=== PATIENT | male | born 1930 | race Caucasian/White ===

== ENCOUNTER → 2016-04-29 | Outpatient (CLI) | payer MEDICARE, OTHER ==
[2016-04-29 13:53] VITALS: BP 210/98; PULSE 85; RESP 16; TEMP 97.8
--- NOTE | 2016-04-30 22:11 | P.PN ---
Subjective This is follow-up visit for this patient with a history of severe and chronic low back pain secondary to lumbar degenerative disc disease, lumbar facet arthropathy, we have done interventional pain management injection, radiofrequency ablation of the medial branch lumbar area, and patient reported that his pain improved significantly than the radiofrequency, but 2 days ago he was shoveling the snow on his started feeling severe low back pain with radiation to the lower extremity, pain is constant with radiation to the lower extremity he had no change in the bowel movement or urination. No fever or night sweats and no motor or sensory deficit, intensity of the pain increases with any activity or changing position, Physical Examinations : 1-Constitutiona : Cooperative , not in acute distress . 2-HEENT : nech ; supple , no Lymphadenopathy , no Thyromegaly , normal thyroid size . eyes : no ptosis , no icterus, no photophobia . ENT : normal of hearing , normal oropharynx , no Thrush . 3- Respiratory : Chest clear to auscultations Bilaterally , no wheezing , no Rhonchi . 4- Cardiovascular : regular rate and rhythem , S1 , S2 , no S3 , no S4. 5- Gastrointestinal : abdomen soft no tenderness , bowel sounds positive all four quadrents , no organomegally . 6- Genitourinary : Defferred . 7- neurologic : Cranial nerve II to XII intact , no focal neurological deffecit . 8-psychatric : alert , oriented X 3 , appropriate affect , intact judgment and insight . 9-Lymphatic : no Lymphadenopathy . 10- musculoskeltal : exams of the Lumber spine = motor strength lower extremities ,thigh and legs .5/5 deep tendon reflexes : normal Knee Jerk , normal ankle Jerk . lumber facet Loading Test negative strait leg raising test positive at 30 degree , RT ,LT , Fabere test positive RT and positive LT . 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 myelopathy , Status post radiofrequency ablation of the medial branch lumbar area done in February 2016 and early March 2016 , the pain started after patient was shoveling the snow , patient could benefit from Ultram 50 mg half a tablet every 6 hours , and Mobic 7.5 mg daily And we will see patient in the clinic in 3-4 weeks , if he continued to have pain then will consider doing lumbar epidural steroid injection - diagnoses, prognosis, and treatment options including but not limited to physical therapy, surgical interventions, interventional therapies and medication management including narcotics and adjuvant medication were discussed with the patient and all questions answered to the patient's satisfaction. Objective - Vital Signs Vital signs: Vital Signs Temp 97.8 F 04/29/16 13:44 Pulse 85 04/29/16 13:44 Resp 16 04/29/16 13:44 BP 210/98 04/29/16 13:44 Pulse Ox
== END | disposition home or self-care (01) ==
LOC: PNWHC3 12:32
PROVIDERS: ATTEND Specialist
DX: M51.36 Other intervertebral disc degeneration, lumbar region (principal); M47.816 Spondylosis without myelopathy or radiculopathy, lumbar region; M46.96 Unspecified inflammatory spondylopathy, lumbar region
CPT/HCPCS: 99211

== ENCOUNTER 2016-05-21 22:15 | Inpatient (IN) | payer MEDICARE, OTHER ==
[2016-05-21] MEDS ORDERED: NITROGLYCERIN SL TABS 0.4 MG TAB SUBLINGUAL STA (22:33)
[2016-05-21] MEDS ORDERED: SODIUM CHLORIDE 0.9% 1,000 ML IV STA (22:33)
--- NOTE | 2016-05-21 22:39 | ED ---
Chest Pain HPI - General Chief Complaint: Chest Pain Stated Complaint: Chest Pain Time Seen by Provider: 05/21/16 22:25 Source: patient, RN notes reviewed Mode of arrival: EMS Limitations: no limitations - History of Present Illness Initial Comments: This 85-year-old male who states he had the onset of retrosternal chest discomfort after eating dinner tonight. He states pain was sharp and then heavy 7-8/10 in severity he took 2 aspirins he states is down to about a 45 right now. He denies any shortness of breath cough fevers chills sweats or other symptoms. MD Complaint: chest pain - Related Data Home Medications Medication Instructions Recorded Confirmed Ergocalciferol [Vitamin D2 50,000 unit PO Q15D 01/27/14 05/21/16 (DRISDOL)] Losartan Potassium 100 mg PO DAILY 01/27/14 05/21/16 Multivitamins, Thera [Multivitamin] 1 tab PO DAILY 01/27/14 05/21/16 [place]-3 Fatty Acids/Fish Oil [Fish 1 cap PO BID 01/27/14 05/21/16 Oil 1,000 mg Softgel] Garlic 1 tab PO BID 11/28/15 05/21/16 sitaGLIPtin [Januvia] 25 mg PO DAILY 11/28/15 05/21/16 Vitamin B Complex 1 cap PO DAILY 12/12/15 05/21/16 Atorvastatin [Lipitor] 40 mg PO HS 05/21/16 05/21/16 Verapamil HCl [Verapamil ER] 240 mg PO DAILY 05/21/16 05/21/16 metFORMIN HCL 1,000 mg PO W/SUPPER 05/21/16 05/21/16 Allergies Allergy/AdvReac Type Severity Reaction Status Date / Time iron Allergy Rash/Hives Verified 05/21/16 23:11 Review of Systems ROS Statement: Those systems with pertinent positive or pertinent negative responses have been documented in the HPI. ROS Other: All systems not noted in ROS Statement are negative. EKG Findings - EKG Results: EKG: interpreted by RASHEED, sinus rhythm (Sinus rhythm first-degree AV block occasional PVC rate was 95. Interval to 16 QRS duration 86 QT/QTC 358/449 st-t wave changes) Past Medical History Past Medical History: Cancer, Diabetes Mellitus, Hyperlipidemia, Hypertension, Osteoarthritis (OA) Additional Past Medical History / Comment(s): prostate ca, osteoarthritis in lower back. pain lower back and lt knee History of Any Multi-Drug Resistant Organisms: None Reported Past Surgical History: Bowel Resection, Hernia Repair, Joint Replacement Additional Past Surgical History / Comment(s): bilateral hip replacements, zoltan. cataract surgery. Past Anesthesia/Blood Transfusion Reactions: No Reported Reaction Past Psychological History: No Psychological Hx Reported Smoking Status: Former smoker Past Alcohol Use History: Daily Additional Past Alcohol Use History / Comment(s): quit smoking 40 years ago, smoked a pipe. Past Drug Use History: None Reported - Past Family History Mother Family Medical History: Congestive Heart Failure (CHF) Father Family Medical History: Myocardial Infarction ([place]) General Exam - General Exam Comments Initial Comments: This is a well-developed well-nourished awake alert oriented 3 male Limitations: no limitations General appearance: alert, in no apparent distress Head exam: Present: atraumatic, normocephalic, normal inspection Eye exam: Present: normal appearance, PERRL, EOMI. Absent: scleral icterus, conjunctival injection, periorbital swelling ENT exam: Present: normal exam, mucous membranes moist Neck exam: Present: normal inspection. Absent: tenderness, meningismus, lymphadenopathy Respiratory exam: Present: normal lung sounds bilaterally. Absent: respiratory distress, wheezes, rales, rhonchi, stridor Cardiovascular Exam: Present: regular rate, normal rhythm, normal heart sounds. Absent: systolic murmur, diastolic murmur, rubs, gallop, clicks GI/Abdominal exam: Present: soft, tenderness (Mild epigastric tenderness to palpation no guarding rebound), normal bowel sounds. Absent: distended, guarding, rebound, rigid Extremities exam: Present: normal inspection, full ROM, normal capillary refill. Absent: tenderness, pedal edema, joint swelling, calf tenderness Back exam: Present: normal inspection Neurological exam: Present: alert, oriented X3, CN II-XII intact Psychiatric exam: Present: normal affect, normal mood Skin exam: Present: warm, dry, intact, normal color. Absent: rash Course Vital Signs 05/21/16 05/21/16 05/21/16 22:18 22:38 22:50 Temperature 96.8 F L Pulse Rate 97 86 96 Pulse Rate [ 94 Surgical Dental Assistant ] Respiratory 16 16 16 Rate Blood Pressure 172/79 190/75 130/63 O2 Sat by Pulse 96 98 95 Oximetry - Reevaluation(s) Reevaluation #1: 05/21/16 23:46 The patient did get some relief after administration of nitroglycerin Chest Pain MDM - MDM I did have a long discussion with patient and his regarding findings patient be admitted Critical Care Time Critical Care Time: Yes Critical Care Time: 31 minutes of critical care time which includes initial history physical lab and x-ray orders reevaluation of the patient to responsive therapy evaluation of labs and x-rays discussion with patient family discussion with the admitting physician and admission orders and documentation of the above. Disposition Clinical Impression: Unstable angina pectoris Disposition: ADMITTED IP TO THIS HOSP Condition: Stable
[2016-05-21 22:47] LABS: Basophils % (A) 0 %; CH 30.4; CHCM 33.5; Eosinophils # (A) 0.2 k/uL (0-0.7); Eosinophils % (A) 2 %; HCT 38.9 % (39.0-53.0); HDW 3.09; HGB 12.8 gm/dL (13.0-17.5); Luc # (Auto) 0.28; Luc % (Auto) 4; Lymphocytes # (A) 1.8 k/uL (1.0-4.8); Lymphocytes % (A) 24 %; MCH 30.1 pg (25.0-35.0); MCV 91.3 fL (80.0-100.0); Mean Platelet Volume 7.4; Monocytes # (A) 0.6 k/uL (0-1.0); Monocytes % (A) 7 %; Neutrophils # (A) 4.9 k/uL (1.3-7.7); Neutrophils % (A) 63 %; RBC 4.26 m/uL (4.30-5.90); RDW 14.4 % (11.5-15.5); WBC 7.8 k/uL (3.8-10.6); WBC (Perox) 7.76
[2016-05-21] MEDS ORDERED: HEPARIN SODIUM,PORCINE 5,000 UNIT/ML 1 ML VIAL IV ONE (22:50)
[2016-05-21] MEDS ORDERED: NITROGLYCERIN OINT 1 INCH/GM PACKET TOPICAL STA (22:50)
[2016-05-21 22:56] LABS: ALT 28 U/L (21-72); AST 21 U/L (17-59); Alkaline Phosphatase 70 U/L (38-126); Amylase 49 U/L (30-110); Anion Gap 17 mmol/L; Blood Urea Nitrogen 20 mg/dL (9-20); Calcium 9.4 mg/dL (8.4-10.2); Carbon Dioxide 17 mmol/L (22-30); Chloride 107 mmol/L (98-107); Glucose 94 mg/dL (74-99); Magnesium 1.8 mg/dL (1.6-2.3); Non-African American GFR(MDRD) >60 (>60 ml/min/1.73 sqM); Potassium 3.8 mmol/L (3.5-5.1); Sodium 141 mmol/L (137-145); Total Bilirubin 0.4 mg/dL (0.2-1.3); Total Protein 6.6 g/dL (6.3-8.2)
[2016-05-21] MEDS ORDERED: HEPARIN SODIUM,PORCINE/D5W PMX 25,000 UNIT in DEXTROSE/WATER 1 500ML.BAG IV SCH (23:00)
[2016-05-21 23:01] LABS: Partial Thromboplastin Time 24.7 sec (22.0-30.0); Prothrombin Time 10.3 sec (9.0-12.0)
[2016-05-21 23:05] LABS: Creatine Kinase 66 U/L (55-170)
[2016-05-21 23:18] LABS: Creatine Kinase MB 1.9 ng/mL (0.0-2.4); Troponin I <0.012 ng/mL (0.000-0.034)
[2016-05-21] MEDS ORDERED: ERGOCALCIFEROL 50,000 UNIT CAP PO SCH (23:45)
[2016-05-21] MEDS: SODIUM CHLORIDE 0.9% 1,000 ML IV SCH (23:59)
--- NOTE | 2016-05-22 00:15 | XR ---
EXAMINATION TYPE: XR chest 2V DATE OF EXAM: 05/21/2016 11:02 PM COMPARISON: 09/10/2010 HISTORY: Chest pain today history of cancer and hypertension. TECHNIQUE: Frontal and lateral views of the chest are obtained. FINDINGS: Mild chronic interstitial lung changes are suggested especially in the right lung base of chronic aryan ure with possible mild pulmonary fibrotic scarring. There is no focal air space opacity, pleural effusion, or pneumothorax seen. There is mild cardiomega ly and atherosclerotic calcification in the aortic arch. The superior mediastinum is slightly prominent probably related to great vessels. Moderate degenerative changes are present in the bilateral shoulder joints. IMPRESSION: 1. Chronic lung changes. 2. No definite focal pneumonia. 3. No significant interval change.
[2016-05-22] MEDS ORDERED: ONDANSETRON 4 MG/2 ML VIAL IVP PRN (00:52)
[2016-05-22] MEDS ORDERED: MORPHINE SULFATE 4 MG/ML SYRINGE IVP PRN (00:52)
[2016-05-22 01:22] VITALS: BMI 28.3
[2016-05-22] MEDS: NITROGLYCERIN OINT 1 INCH/GM PACKET TOPICAL SCH ×3 (01:26→05:24)
[2016-05-22 06:00] LABS: Cholesterol 115 mg/dL (<200); Creatine Kinase 60 U/L (55-170); HDL Cholesterol 47 mg/dL (40-60); Triglycerides 103 mg/dL (<150)
[2016-05-22 06:13] LABS: Creatine Kinase MB 1.7 ng/mL (0.0-2.4); Troponin I <0.012 ng/mL (0.000-0.034)
[2016-05-22] MEDS ORDERED: HEPARIN SODIUM,PORCINE 5,000 UNIT/ML 1 ML VIAL IV PRN (06:39)
[2016-05-22 07:09] LABS: Glucose,Whole Blood 142 mg/dL (75-99)
[2016-05-22] MEDS: INSULIN LISPRO (humaLOG) 300 UNIT/3 ML VIAL SQ SCH ×4 (07:48→22:12)
[2016-05-22 08:10] LABS: Hemoglobin A1C 6.3 % (4.2-6.1)
[2016-05-22] MEDS ORDERED: ASPIRIN 325 MG TAB PO SCH (09:00)
[2016-05-22] MEDS ORDERED: NON-FORMULARY DRUG (Garlic [Garlic] 1 TAB) PO SCH (09:00)
[2016-05-22] MEDS ORDERED: VERAPAMIL SR 240 MG TABLET.ER PO SCH (09:00)
[2016-05-22] MEDS ORDERED: NON-FORMULARY DRUG (Omega-3 Fatty Acids/Fish Oil [Fish Oil 1,000 Mg Softgel] 1 CAP) PO SCH (09:00)
[2016-05-22] MEDS ORDERED: LOSARTAN 50 MG TAB PO SCH ×2 (09:00→21:00)
[2016-05-22] MEDS ORDERED: AMINOPHYLLINE 500 MG/20 ML VIAL IV PRN (09:34)
[2016-05-22] MEDS ORDERED: REGADENOSON 0.4 MG/5 ML SYRINGE IV ONE (09:34)
--- NOTE | 2016-05-22 10:03 | CONS ---
DATE OF CONSULTATION: Mr. Lauren is an 85-year-old male patient who presented with recurrent chest discomfort to the emergency room. He felt a little fuzzy in the head, but had no other associated symptoms. No radiation. His 12-lead ECG showed sinus rhythm with a mildly prolonged OH interval with occasional PVCs. No definite ST segment abnormalities. Cardiac enzymes x3 have been normal. 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 He has Parkinson disease. REVIEW OF SYSTEMS: No fever, chills or rigors. No cough or expectoration. No nausea, vomiting or diarrhea. No hematuria or dysuria. No strokes or seizures. No skin lesions. No musculoskeletal complaints. Allergies to IRON. SOCIAL HISTORY: He is a former smoker. He quit smoking 40 years back. He smoked a pipe. On examination, he is afebrile. Heart rate is in the 80s and 90s. His blood pressure was elevated initially at 172/79 mmHg and 190/ 75 mmHg. Currently, his blood pressure is 164/85 mmHg. His medications were reviewed and he is on losartan 100 mg a day. He is on verapamil 240 mg daily and he is on atorvastatin 40 mg q.h.s. IMPRESSION: 1. Uncontrolled hypertension. 2. Atypical chest discomfort with normal cardiac enzymes. 3. History of diabetes, adult onset. He is on metformin. 4. Dyslipidemia. He is on atorvastatin. SUGGEST: Continue aspirin, blood pressure control. His kidney function is normal. I would stop his verapamil and switch to amlodipine 10 mg p.o. daily. I will hold off of on stress test until his blood pressure is controlled.
[2016-05-22] MEDS: B COMPLEX-VIT C-VIT E-ZINC 1 EACH TAB PO SCH (10:12)
[2016-05-22] MEDS: LINAGLIPTIN 5 MG TABLET PO SCH (10:12)
[2016-05-22] MEDS: MULTIVITAMINS, THERA 1 EACH TAB PO SCH (10:12)
--- NOTE | 2016-05-22 10:31 | P.HPIM ---
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 Stated that he to 2 aspirins seemed to settle down. Patient states over the last several weeks has felt "a little out of balance noted to have a shuffling type gait with slight tremors noted to the hands. Additionally patient states over the last several months poor oral intake weight loss unintentional with poor appetite secondary to sensation of nausea no active emesis "I just don't feel like eating" patient states that he has been compliant with taking his medication as directed. Patient states in the this been no burning on urination frequency urgency or incontinence and no change in her bowel habit no blood noted in stool. In the emergency room the blood pressure was elevated 190/75 with a heart rate in the 80s to 90s subsequently the patient has been admitted to the services of the attending Cardiology consultation was requested. His blood pressure meds were adjusted Norvasc 10 mg daily verapamil stopped Cozaar 50 at bedtime and to continue the 100 mg daily. Cardiology recommended no Lexiscan at this time cardiac enzymes were negative 3 sets and orthostatic blood pressures every shift evaluate response Nursing to check orthostatic blood pressures. The blood pressure was 168/80 lying with a heart rate in the 80s standing the blood pressure dropped to 119 over 80s with a heart rate of 93 patient denied any dizziness lightheadedness Review of Systems Essentially unremarkable except as mentioned in the present illness Past Medical History Past Medical History: Cancer, Diabetes Mellitus, Hyperlipidemia, Hypertension, Osteoarthritis (OA) Additional Past Medical History / Comment(s): prostate ca with radiation, osteoarthritis in lower back. pain lower back and lt knee History of Any Multi-Drug Resistant Organisms: None Reported Past Surgical History: Bowel Resection, Hernia Repair, Joint Replacement Additional Past Surgical History / Comment(s): bilateral hip replacements, zoltan. cataract surgery, nerve procedure on lower back at [facility] Past Anesthesia/Blood Transfusion Reactions: No Reported Reaction Past Psychological History: No Psychological Hx Reported Additional Psychological History / Comment(s): pt states he has had some problems with depression since his brother in February of 2016. He states he has had 6 friends also over the last year. he states he feels this is situational. denies suicidal thoughts or feelings of wanting to be himself. he has found productive ways to cope with these feelings and relys on his debra Smoking Status: Former smoker Past Alcohol Use History: Occasional Additional Past Alcohol Use History / Comment(s): only smoked a pipe. Past Drug Use History: None Reported Additional Drug Use History / Comment(s): pt states he has a glass of whiskey on occasion in the evenings - Past Family History Mother History Unknown: Yes Family Medical History: Congestive Heart Failure (CHF) Father History Unknown: Yes Family Medical History: Myocardial Infarction ([place]) Medications and Allergies Home Medications Medication Instructions Recorded Confirmed Type Ergocalciferol [Vitamin D2 50,000 unit PO Q15D 01/27/14 05/21/16 History (DRISDOL)] Losartan Potassium 100 mg PO DAILY 01/27/14 05/21/16 History Multivitamins, Thera [Multivitamin] 1 tab PO DAILY 01/27/14 05/21/16 History [place]-3 Fatty Acids/Fish Oil [Fish 1 cap PO BID 01/27/14 05/21/16 History Oil 1,000 mg Softgel] Garlic 1 tab PO BID 11/28/15 05/21/16 History sitaGLIPtin [Januvia] 25 mg PO DAILY 11/28/15 05/21/16 History Vitamin B Complex 1 cap PO DAILY 12/12/15 05/21/16 History Atorvastatin [Lipitor] 40 mg PO HS 05/21/16 05/21/16 History Verapamil HCl [Verapamil ER] 240 mg PO DAILY 05/21/16 05/21/16 History metFORMIN HCL 1,000 mg PO W/SUPPER 05/21/16 05/21/16 History Allergies Allergy/AdvReac Type Severity Reaction Status Date / Time iron Allergy Rash/Hives Verified 05/21/16 23:11 Physical Exam Vitals: Vital Signs Temp Pulse Pulse Pulse Resp BP BP 05/22/16 09:21 94 18 164/85 05/22/16 08:00 98.7 F 100 18 181/99 05/22/16 04:00 98.1 F 95 16 179/90 05/22/16 03:24 93 16 05/22/16 01:27 106 H 16 05/22/16 01:21 97.7 F 101 H 16 162/87 05/22/16 00:01 97.7 F 89 16 181/86 Pulse Ox 05/22/16 09:21 94 L 05/22/16 08:00 93 L 05/22/16 04:00 96 05/22/16 03:24 05/22/16 01:27 05/22/16 01:21 97 05/22/16 00:01 97 Intake and Output 05/21/16 05/22/16 05/22/16 22:59 06:59 14:59 Intake Total 140.731 Balance 140.731 Intake: Intake, IV Titration 140.731 Amount Heparin Sodium,Porcine/ 140.731 D5w Pmx 25,000 unit In Dextrose/Water 1 500ml. bag @ 12 UNITS/KG/HR 17. 41 mls/hr IV .Q24H [facility] Rx #:[id number] Other: Voiding Method Toilet Toilet Urinal Urinal Diaper Diaper # Voids 4 Weight 72.575 kg GENERAL APPEARANCE: 88-year-old male patient is alert, oriented, in no acute distress. Is hard of hearing VITAL SIGNS: Reviewed HEENT: Head is normocephalic and atraumatic. Pupils are equal and reactive. The nares are patent. Oropharynx is clear without lesions. NECK: Supple without lymphadenopathy. Traches midline. HEART: S1, S2. Regular rate and rhythm. Monitor sinus episodes of unifocal PVCs PACs LUNGS: No crackles or wheezes are heard. On room air sats greater than 95% ABDOMEN: Soft, nontender, nondistended with good bowel sounds. No peritoneal signs. No palpable organomegaly or masses. EXTREMITIES: Normal skin color and turgor. No cyanosis, rash, ulceration, clubbing or edema. Radial pedal pulses are 2/4 bilaterally. Fine tremors noted to the hand NEUROLOGICAL: No focal deficits. Strength and sensation are grossly intact. Results CBC & Chem 7: 05/21/16 22:30 05/21/16 22:30 Labs: Abnormal Lab Results - Last 24 Hours (Table) 05/22/16 05/22/16 Range/Units 05:26 07:08 POC Glucose (mg/dL) 142 H (75-99) mg/dL Hemoglobin A1c 6.3 H (4.2-6.1) % Thrombosis Risk Factor Assmnt - Choose All That Apply Each Risk Factor Represents 3 Points: Age 75 years or older Thrombosis Risk Factor Assessment Total Risk Factor Score: 3 Thrombosis Risk Factor Assessment Level: Moderate Risk Assessment and Plan Plan: Impression Present on admission chest pain atypical with no evidence of acute coronary syndrome Shuffling gait with hand tremors suspect due to Parkinson's Positive orthostatic blood pressure lying 168/80 heart rate in the 90s standing 119/80 with a heart rate 93 Report of unintentional weight loss past several months History of hypertension Type 2 diabetes non-insulin hemoglobin A1c 6.3 Plan Check orthostatic blood pressures every shift Check echocardiogram Continue with recommendations by cardiology Consult neurology question Parkinson's disease Dietitian to see for poor oral intake poor caloric intake possible nutritional supplements needed IV fluid as ordered DVT and GI prophylaxis The above dictated assessment and findings were discussed with dr velasco . Impression and the plan of care have been dictated as directed. Erica Haley nurse practitioner acting as a scribe for dr velasco.
[2016-05-22 11:32] LABS: Creatine Kinase 61 U/L (55-170)
[2016-05-22 11:44] LABS: Creatine Kinase MB 1.7 ng/mL (0.0-2.4); Troponin I <0.012 ng/mL (0.000-0.034)
[2016-05-22 12:12] LABS: Glucose,Whole Blood 129 mg/dL (75-99)
[2016-05-22] MEDS: SODIUM CHLORIDE 0.9% 1,000 ML IV SCH (12:19)
[2016-05-22] MEDS: ASPIRIN 81 MG CHEW PO SCH (12:19)
--- NOTE | 2016-05-22 17:09 | P.CNNES ---
History of Present Illness Consult date: 05/22/16 History of Present Illness: The patient is an 85-year-old right-handed white male with history of chest pain for the past 2 or 3 days. He states the pain was in the left chest area and intermittent and last evening it became more severe and intense. He took 2 aspirin and his brought him to the emergency room. X Neurology is requested to see the patient regarding Parkinson's like symptoms. He states that over the past 2 months he's been shuffling his gait and has had tremors in both hands. He also noticed some stiffening of the limbs. His handwriting is been okay and he denied any drooling. His swallowing has been okay. 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 Review of Systems Constitutional: Denies chills, Denies fever Eyes: denies blurred vision, denies pain Cardiovascular: Denies chest pain, Denies shortness of breath Respiratory: Denies cough Musculoskeletal: Denies myalgias Integumentary: Denies pruritus, Denies rash Neurological: Denies numbness, Denies weakness Psychiatric: Denies anxiety, Denies depression Endocrine: Denies fatigue, Denies weight change Past Medical History Past Medical History: Cancer, Diabetes Mellitus, Hyperlipidemia, Hypertension, Osteoarthritis (OA) Additional Past Medical History / Comment(s): prostate ca with radiation, osteoarthritis in lower back. pain lower back and lt knee History of Any Multi-Drug Resistant Organisms: None Reported Past Surgical History: Bowel Resection, Hernia Repair, Joint Replacement Additional Past Surgical History / Comment(s): bilateral hip replacements, zoltan. cataract surgery, nerve procedure on lower back at [facility] Past Anesthesia/Blood Transfusion Reactions: No Reported Reaction Past Psychological History: No Psychological Hx Reported Additional Psychological History / Comment(s): pt states he has had some problems with depression since his brother in February of 2016. He states he has had 6 friends also over the last year. he states he feels this is situational. denies suicidal thoughts or feelings of wanting to be himself. he has found productive ways to cope with these feelings and relys on his debra Smoking Status: Former smoker Past Alcohol Use History: Occasional Additional Past Alcohol Use History / Comment(s): only smoked a pipe. Past Drug Use History: None Reported Additional Drug Use History / Comment(s): pt states he has a glass of whiskey on occasion in the evenings - Past Family History Mother History Unknown: Yes Family Medical History: Congestive Heart Failure (CHF) Father History Unknown: Yes Family Medical History: Myocardial Infarction ([place]) Medications and Allergies Home Medications Medication Instructions Recorded Confirmed Type Ergocalciferol [Vitamin D2 50,000 unit PO Q15D 01/27/14 05/21/16 History (DRISDOL)] Losartan Potassium 100 mg PO DAILY 01/27/14 05/21/16 History Multivitamins, Thera [Multivitamin] 1 tab PO DAILY 01/27/14 05/21/16 History [place]-3 Fatty Acids/Fish Oil [Fish 1 cap PO BID 01/27/14 05/21/16 History Oil 1,000 mg Softgel] Garlic 1 tab PO BID 11/28/15 05/21/16 History sitaGLIPtin [Januvia] 25 mg PO DAILY 11/28/15 05/21/16 History Vitamin B Complex 1 cap PO DAILY 12/12/15 05/21/16 History Atorvastatin [Lipitor] 40 mg PO HS 05/21/16 05/21/16 History Verapamil HCl [Verapamil ER] 240 mg PO DAILY 05/21/16 05/21/16 History metFORMIN HCL 1,000 mg PO W/SUPPER 05/21/16 05/21/16 History Allergies Allergy/AdvReac Type Severity Reaction Status Date / Time iron Allergy Rash/Hives Verified 05/21/16 23:11 Physical Examination - Vital Signs Vital Signs: Vital Signs Temp Pulse Resp BP Pulse Ox 05/22/16 15:32 97.7 F 83 18 183/85 95 05/22/16 11:44 98.3 F 89 18 157/87 94 L Intake and Output 05/22/16 05/22/16 05/22/16 06:59 14:59 22:59 Intake Total 200 Balance 200 Intake: Oral 200 Other: Weight 72.575 kg Patient Weight 05/23/16 06:59 Weight 72.575 kg - Constitutional General appearance: average body habitus - EENT EENT: PERRL, hearing intact, vision intact - Respiratory Respiratory: lungs clear - Cardiovascular Cardiovascular: regular rate, normal S1, normal S2 - Integumentary Integumentary: normal - Neurologic Mental status he was awake alert and oriented 3 his speech was fluent there was no aphasia or dysarthria Cranial nerve examination: EOMI, VFF, face symmetric, tongue midline Sensorimotor examination: intact Detailed motor examination: grossly full strength in all extremities ( mild cogwheel rigidity) Reflex and gait examination: other (Shuffling gait) Results - Laboratory Findings CBC and BMP: 05/21/16 22:30 05/21/16 22:30 Abnormal Lab Findings: Abnormal Labs 05/22/16 12:10 POC Glucose (mg/dL) 129 H Assessment and Plan (1) Unstable angina pectoris Status: Acute Code(s): I20.0 - UNSTABLE ANGINA (2) Parkinsons disease Status: Acute Code(s): G20 - PARKINSON'S DISEASE Plan: The patient is an 85-year-old man who's been having difficulty with in the past few months with tremors at rest and shuffling gait. On neurologic examination he does have a mild masked face and minimal cogwheel rigidity as well as mild shuffling gait. He does have early features of Parkinson's disease. His admitted to the hospital with unstable angina. Recommend when stable patient can be started on Sinemet 25/100 twice a day as a trial to see if this improves his shuffling gait and resting tremor.
[2016-05-22 17:15] LABS: Glucose,Whole Blood 116 mg/dL (75-99)
[2016-05-22] MEDS ORDERED: metFORMIN 500 MG TAB PO SCH (17:30)
--- NOTE | 2016-05-22 19:08 | CT ---
EXAMINATION TYPE: CT brain wo con DATE OF EXAM: 05/22/2016 6:36 PM COMPARISON: NONE HISTORY: weakness CT DLP: 1121 mGycm Automated exposure control for dose reduction was used. FINDINGS: There is some cerebral cortical atrophy. There is no mass effect nor midline shift. There is no sign of intracranial hemorrhage. There is slight prominence of the ventricles. No rim is intact. IMPRESSION: Mild atrophy and mild normal pressure type hydrocephalus. No acute intracranial abnormality.
[2016-05-22] MEDS ORDERED: ATORVASTATIN 40 MG TAB PO SCH (21:00)
[2016-05-22] MEDS ORDERED: cloNIDine 0.1 MG/24HR PATCH 1 PATCH PATCH TRANSDERM SCH (21:00)
[2016-05-22 21:51] LABS: Glucose,Whole Blood 126 mg/dL (75-99)
[2016-05-23 06:53] LABS: Glucose,Whole Blood 135 mg/dL (75-99)
[2016-05-23] MEDS: SODIUM CHLORIDE 0.9% 1,000 ML IV SCH ×2 (07:57→08:03)
[2016-05-23] MEDS: LINAGLIPTIN 5 MG TABLET PO SCH (08:02)
[2016-05-23] MEDS: MULTIVITAMINS, THERA 1 EACH TAB PO SCH (08:02)
[2016-05-23] MEDS: INSULIN LISPRO (humaLOG) 300 UNIT/3 ML VIAL SQ SCH (08:02)
[2016-05-23] MEDS: ASPIRIN 81 MG CHEW PO SCH (08:02)
[2016-05-23] MEDS: B COMPLEX-VIT C-VIT E-ZINC 1 EACH TAB PO SCH (08:02)
[2016-05-23 08:23] VITALS: BP 193/91; PULSE 81; RESP 18; TEMP 98.6
[2016-05-23 08:29] LABS: ALT 38 U/L (21-72); AST 16 U/L (17-59); Alkaline Phosphatase 71 U/L (38-126); Anion Gap 14 mmol/L; Blood Urea Nitrogen 14 mg/dL (9-20); Calcium 9.3 mg/dL (8.4-10.2); Carbon Dioxide 23 mmol/L (22-30); Chloride 107 mmol/L (98-107); Glucose 135 mg/dL (74-99); Non-African American GFR(MDRD) >60 (>60 ml/min/1.73 sqM); Potassium 4.2 mmol/L (3.5-5.1); Sodium 144 mmol/L (137-145); Total Bilirubin 0.7 mg/dL (0.2-1.3); Total Protein 5.9 g/dL (6.3-8.2)
[2016-05-23] MEDS ORDERED: amLODIPine 10 MG TAB PO SCH (09:00)
--- NOTE | 2016-05-23 09:30 | ECHOF ---
Referral Reason:LV function MEASUREMENTS -------- HEIGHT: 160.0 cm WEIGHT: 72.6 kg BP: IVSd: 1.4 cm (0.6 - 1.1) LVIDd: 4.4 cm (3.9 - 5.3) LVPWd: 1.3 cm (0.6 - 1.1) IVSs: 2.0 cm LVIDs: 3.2 cm LVPWs: 1.0 cm LA Diam: 2.8 cm (2.7 - 3.8) Ao Diam: 3.4 cm (2.0 - 3.7) AV Cusp: 1.6 cm (1.5 - 2.6) LA Diam: 3.9 cm (2.7 - 3.8) MV EXCURSION: 13.275 mm (> 18.000) MV EF SLOPE: 62 mm/s (70 - 150) EPSS: 0.9 cm MV E Garret: 0.38 m/s MV DecT: 295 ms MV A Garret: 0.88 m/s MV E/A Ratio: 0.44 RAP: 5.00 mmHg RVSP: 12.04 mmHg FINDINGS -------- Sinus rhythm. This was a technically adequate study. There is mild concentric left ventricular hypertrophy. Overall left ventricular systolic function is low-normal with, an EF between 50 - 55 %. The right ventricle is normal in size. The left atrial size is normal. The right atrial size is normal. There is mild aortic valve sclerosis. There is no evidence of aortic regurgitation. Mild mitral annular calcification present. Mild mitral regurgitation is present. Mild tricuspid regurgitation present. There is no evidence of pulmonary hypertension. The right ventricular systolic pressure, as measured by Doppler, is 12.04mmHg. There is no pulmonic regurgitation present. The aortic root size is normal. Echo free space may represent effusion or a pericardial fat pad. CONCLUSIONS -------- 1. There is mild concentric left ventricular hypertrophy. 2. Overall left ventricular systolic function is low-normal with, an EF between 50 - 55 %. 3. There is mild aortic valve sclerosis. 4. Mild mitral annular calcification present. 5. Mild mitral regurgitation is present. 6. Mild tricuspid regurgitation present. 7. There is no evidence of pulmonary hypertension. 8. The right ventricular systolic pressure, as measured by Doppler, is 12.04mmHg. 9. Echo free space may represent effusion or a pericardial fat pad. PULL OVER: Leslie Sawyer RDCS
[2016-05-23] MEDS ORDERED: CARBIDOPA-LEVODOPA 25-100 MG 1 EACH TAB PO SCH (10:15)
--- NOTE | 2016-05-23 10:35 | P.DS ---
Providers Date of admission: 05/22/16 11:33 Expected date of discharge: 05/23/16 Attending physician: Neptali Austin Consults: Dr. 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 Stated that he to 2 aspirins seemed to settle down. Patient states over the last several weeks has felt "a little out of balance noted to have a shuffling type gait with slight tremors noted to the hands. Additionally patient states over the last several months poor oral intake weight loss unintentional with poor appetite secondary to sensation of nausea no active emesis "I just don't feel like eating" patient states that he has been compliant with taking his medication as directed. Patient states in the this been no burning on urination frequency urgency or incontinence and no change in her bowel habit no blood noted in stool. In the emergency room the blood pressure was elevated 190/75 with a heart rate in the 80s to 90s subsequently the patient has been admitted to the services of the attending Cardiology consultation was requested. . Cardiology recommended no Lexiscan at this time cardiac enzymes were negative 3 sets and orthostatic blood pressures every shift evaluate response orthostatic blood pressure readings were positive on admission. Cardiology recommended stopping home doses of verapamil and and losartan and start clonidine patch 0.1 milligram now and change every 7t day. Cardiology recommended that they would follow the patient in the outpatient setting and antihypertensive meds would be addressed after monitoring blood pressure in the response on the current regimen patient did have an echocardiogram done this admission showed left ventricular systolic function low normal EF between 50 and 55% no pulmonary hypertension no valvular heart disease etiology indicated they wanted to avoid extremes in patient's blood pressure avoid hypotensive episodes at the time of discharge the systolic blood pressure was 179 .On admission The blood pressure was 168/80 lying with a heart rate in the 80s standing the blood pressure dropped to 119 over 80s with a heart rate of 93 patient denied any dizziness lightheadedness A neurology consultation was requested patient was seen by Dr. Langford. Patient was evaluated for the unsteady shuffling gait with fine tremors in a mild masked face. Neurology recommended that the patient could be started on Sinemet [id number] twice a day as a trial and see the symptoms such as a shuffling gait improved and the resting tremors resolved The day of discharge patient was felt to be clinically stable and appropriate to proceed with a discharge to home Impression discharge diagnosis Present on admission mild shuffling gait mild mass face with resting tremors of hands likely due to Parkinson's diseaseImpression Present on admission chest pain atypical with no evidence of acute coronary syndrome Shuffling gait with hand tremors suspect due to Parkinson's Positive orthostatic blood pressure lying 168/80 heart rate in the 90s standing 119/80 with a heart rate 93 Report of unintentional weight loss past several months History of hypertension Type 2 diabetes non-insulin hemoglobin A1c 6.3 Present on admission hypertension urgency Episode of positive orthostasis Echocardiogram May 22 preserved LV function EF 50-55% Chronic Physical debility with gait dysfunction suspect due to Parkinson's disease The above dictated assessment and findings were discussed with dr austin . Impression and the plan of care have been dictated as directed. Erica Haley nurse practitioner acting as a scribe for dr austin Patient Condition at Discharge: Stable Plan - Discharge Summary New Discharge Prescriptions: Carbidopa-Levodopa 25-100 mg [Sinemet 25-100 mg] 1 each PO BID #60 tab cloNIDine 0.1 MG/24HR PATCH [Catapres-TTS] 1 patch TRANSDERM Q7D #4 patch Discharge Medication List Ergocalciferol [Vitamin D2 (DRISDOL)] 50,000 unit PO Q15D 01/27/14 [History] Multivitamins, Thera [Multivitamin] 1 tab PO DAILY 01/27/14 [History] Darling-3 Fatty Acids/Fish Oil [Fish Oil 1,000 mg Softgel] 1 cap PO BID 01/27/14 [ History] Garlic 1 tab PO BID 11/28/15 [History] sitaGLIPtin [Januvia] 25 mg PO DAILY 11/28/15 [History] Vitamin B Complex 1 cap PO DAILY 12/12/15 [History] Atorvastatin [Lipitor] 40 mg PO HS 05/21/16 [History] metFORMIN HCL 1,000 mg PO W/SUPPER 05/21/16 [History] Aspirin 81 mg PO DAILY chew 05/23/16 [Rx] Carbidopa-Levodopa 25-100 mg [Sinemet 25-100 mg] 1 each PO BID #60 tab 05/23/16 [Rx] cloNIDine 0.1 MG/24HR PATCH [Catapres-TTS] 1 patch TRANSDERM Q7D #4 patch [Rx] Follow up Appointment(s)/Referral(s): Neptali Austin MD [Primary Care Provider] - 1-2 days Olamide Langford MD [STAFF PHYSICIAN] - 3 Weeks Ramu Holliday MD [STAFF PHYSICIAN] - 2 Weeks Activity/Diet/Wound Care/Special Instructions: Patient is to change the placement of the Catapres patch every seventh day changing Discharge Disposition: HOME SELF-CARE
--- NOTE | 2016-05-23 11:11 | P.PN ---
Progress Note - Text Patient is ambulating in the hallways today. He is not dizzy or lightheaded he does not appear to be orthostatic but his blood pressure is still elevated. Yesterday I started him on a clonidine patch and discontinued losartan and verapamil or amlodipine He has Parkinson's disease and most likely has dysautonomia/orthostatic hypotension syndrome On examination he is pain-free he's ambulating in the hallways no shortness of breath Blood pressure 172/72 mmHg, normal respirations, pulse rate 76 beats a minute, afebrile Heart sounds are normal Normal S1 normal S2 Breath sounds are normal no rhonchi no crackles reduced breath sounds bilaterally no No lower extremity edema Abdomen soft nontender Impression Hypertension Likely orthostatic hypotension syndrome Likely Parkinson's disease Past history of smoking Atypical chest discomfort Mildly prolonged IL interval with occasional PVCs Adult-onset diabetes on metformin Dyslipidemia on atorvastatin
== END 2016-05-23 12:15 | disposition home or self-care (01) | DRG 305 ==
LOC: EC 22:15 → 3OBS 23:48 → OBSVTOIN 05-22 11:33
PROVIDERS: ADMIT Family Medicine; ATTEND Family Medicine
DX: I10 Essential (primary) hypertension (principal); G20 Parkinson's disease; E11.9 Type 2 diabetes mellitus without complications; R07.89 Other chest pain; E78.5 Hyperlipidemia, unspecified; I95.1 Orthostatic hypotension; F32.9 Major depressive disorder, single episode, unspecified; R63.4 Abnormal weight loss; M47.9 Spondylosis, unspecified; I49.3 Ventricular premature depolarization; Z79.84 Long term (current) use of oral hypoglycemic drugs; Z79.899 Other long term (current) drug therapy; Z85.46 Personal history of malignant neoplasm of prostate; Z85.21 Personal history of malignant neoplasm of larynx; Z87.891 Personal history of nicotine dependence; Z96.643 Presence of artificial hip joint, bilateral; Z88.8 Allergy status to other drugs, medicaments and biological substances; Z82.49 Family history of ischemic heart disease and other diseases of the circulatory system
CPT/HCPCS: 36415; 70450; 71020; 80053; 80061; 82043; 82150; 82550; 82553; 83036; 83690; 83735; 83880; 84484; 85025; 85379; 85610; 85730; 93005; 93306; 96365; 96366; 96376; 99291

== ENCOUNTER → 2016-05-21 | Outpatient (CLI) | payer MEDICARE, OTHER ==
[2016-05-21 08:51] LABS: ALT 34 U/L (21-72); AST 19 U/L (17-59); Alkaline Phosphatase 80 U/L (38-126); Anion Gap 12 mmol/L; Blood Urea Nitrogen 19 mg/dL (9-20); Calcium 9.5 mg/dL (8.4-10.2); Carbon Dioxide 26 mmol/L (22-30); Chloride 106 mmol/L (98-107); Cholesterol 119 mg/dL (<200); Glucose 139 mg/dL (74-99); HDL Cholesterol 51 mg/dL (40-60); Non-African American GFR(MDRD) >60 (>60 ml/min/1.73 sqM); Potassium 4.6 mmol/L (3.5-5.1); Sodium 144 mmol/L (137-145); Total Bilirubin 0.6 mg/dL (0.2-1.3); Total Protein 6.7 g/dL (6.3-8.2); Triglycerides 93 mg/dL (<150)
== END | disposition home or self-care (01) ==
LOC: LABWHC1 07:46
PROVIDERS: ATTEND Internal Medicine Endocrinology, Diabetes & Metabolism
DX: E11.65 Type 2 diabetes mellitus with hyperglycemia (principal)
CPT/HCPCS: 36415; 80053; 80061; 82043

== ENCOUNTER → 2016-05-27 | Outpatient (CLI) | payer MEDICARE, OTHER ==
[2016-05-27 12:37] VITALS: BP 141/63; PULSE 88; RESP 16; TEMP 97.6
--- NOTE | 2016-05-27 12:53 | P.PN ---
Progress Note - Text Patient returns for followup for chronic back pain with radiation to LLE that worsened acutely when patient was shoveling snow in March. Patient underwent bilateral RFA in February and March which provided some relief for several months' interval but he continues to have nagging pain in back and LLE. Patient continues on tramadol and Mobic medications prescribed by our clinic at last visit, but ran out of tramadol which he states was not effective for him. Patient denies adverse drug effects from medications. Today, pt denies new-onset weakness, bowel/bladder incontinence, or any other signs or symptoms of cauda equina syndrome. There are no signs of acute intoxication, and no indications of medication diversion or overuse. In addition to above, 13-point review of systems is also negative for chest pain , shortness of breath, changes in vision, changes in hearing, new onset weakness , abdominal pain, diarrhea, extreme fatigue, malaise, fever, skin changes, homicidal or suicidal ideation, or bowel or bladder incontinence. 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 lumbar radiculopathy 3. chronic pain syndrome Plan: 1. Explanation: Opioid and psychological risk scores were reviewed. Diagnoses , prognoses, and multiple treatment options including but not limited to physical therapy, interventional therapies, adjuvant medical therapies, narcotic medication therapies, and surgery were discussed with the patient and all questions were answered to the patient's satisfaction. 2. Opioid agreement: Patient has previously signed narcotic agreement, and was orally counseled to not overuse, abuse, divert, or cell medications, and to take them as prescribed by only 1 healthcare provider. The patient was also counseled to store opioid medications in a safe and preferably locked location. Patient was also counseled against driving or operating heavy equipment while using narcotic medications and also to not use alcohol or any illicit or recreational drugs. The patient verbalized understanding that lack of compliance with any of the above and likely result in failure to renew narcotic prescriptions, possible discharge from the clinic, and possible legal ramifications thereafter if indicated. 3. Counseling: The patient was counseled extensively on SMOKING CESSATION, BODY MASS INDEX, EXERCISE. Specifically, the patient was instructed regarding the importance of smoking cessation, obesity, and exercise in the context of both chronic pain and overall health. 4. Procedures: LESI series 5. Consultations: None 6. Investigations: None 7. Medications: none prescribed 8. Disposition: f/u for procedure as scheduled PQRS measures: 1-Patient's medications are documented in the chart. 2-Tobacco use is negative 3-Patient has had a pneumococcal vaccine. 4-Advanced care planning discussed, patient unable to give. 5-Opioid contract signed with the patient. 6-Pain positive, follow-up visit or procedure scheduled 7-Patient's blood pressure measured and documented, and patient will follow up with the primary care due to hypertension. 8-Patient's weight was measured, and body mass index ABOVE the normal limits, and counseling was done. Patient instructed to follow up with PCP. 9-Patient WAS NOT identified as an unhealthy alcohol user.
== END | disposition home or self-care (01) ==
LOC: PNWHC3 12:04
PROVIDERS: ATTEND Anesthesiology
DX: G89.4 Chronic pain syndrome (principal); M47.816 Spondylosis without myelopathy or radiculopathy, lumbar region; M54.16 Radiculopathy, lumbar region; Z79.899 Other long term (current) drug therapy
CPT/HCPCS: 99211

== ENCOUNTER 2016-06-27 10:19 | Day surgery (SDC) | payer MEDICARE, OTHER ==
[~2016-06-27 10:19] MED LIST: LACTATED RINGERS 1,000 ML IV SCH
[2016-06-27 10:56] VITALS: TEMP 96.6
[2016-06-27 11:06] LABS: Glucose,Whole Blood 128 mg/dL (75-99)
[2016-06-27] MEDS ORDERED: fentaNYL (PF) 50 MCG/ML 2 ML AMP ONE (11:06)
[2016-06-27] MEDS ORDERED: MIDAZOLAM 2 MG/2 ML VIAL ONE (11:06)
[2016-06-27] MEDS ORDERED: LIDOCAINE 1% 20 ML VIAL (10MG/ML) FOR IV START INTRADERMA ONE (11:06)
[2016-06-27] MEDS ORDERED: IOHEXOL 180 MG/ML 1 ML ML ONE (11:06)
[2016-06-27] MEDS ORDERED: TRIAMCINOLONE ACETONIDE 40 MG/ML 1 ML VIAL ONE (11:06)
--- NOTE | 2016-06-27 11:23 | P.PCN ---
Date of Procedure: 06/27/16 Surgeon: Ang Osorio Pathology: none sent Condition: stable Disposition: PACU Description of Procedure: PREOPERATIVE DIAGNOSIS: 1-Lumbar radiculitis. POSTOPERATIVE DIAGNOSIS: 1-Lumbar radiculitis. PROCEDURE 1. Lumbar epidural steroid injection under fluoroscopic guidance at the L5-S1 level. 2. Lumbar epidurogram. ANESTHESIA: Local with 1% lidocaine; IV sedation with Versed/fentanyl. EBL: Minimal PROCEDURE INDICATION: The patient with low back pain and radiculitis symptoms unresponsive to conservative treatment. Fluoroscopy was used to optimize visualization of the needle placement and to maximize safety. No use of blood thinners. PROCEDURE DESCRIPTION / TECHNIQUE: The patient was seen and identified in the preoperative area. Risks, benefits, complications, and alternatives were discussed with the patient, including but not limited to bleeding, infection, nerve damage, allergic reactions to medications, and incomplete pain relief. The patient agreed to proceed with the procedure and signed the consent after all questions were answered. IV was started, and vital signs were stable. Patient was taken to the OR and time out was completed to confirm patient position, procedure, laterality of pain, and allergies. The patient was placed in the prone position on procedure table and a pillow was placed under the abdomen to reduce lumbar lordosis. The lumbosacral area was prepped and draped in the usual sterile fashion. Critical pause was taken. Vital signs were closely monitored during the procedure. Conscious sedation was used during the procedure to decrease patients anxiety. Using anterior-posterior fluoroscopy with a significant caudal tilt, the L5-S1 interlaminar space was identified and the skin over this site was marked and then infiltrated with 1% lidocaine subcutaneously. Subsequently, a 20-gauge 3.5- inch Tuohy epidural needle was inserted and advanced toward the epidural space using the Loss of resistance technique and guided by AP and lateral fluoroscopy. The correct needle position in the epidural space was verified with the injection of 2 mL of the water soluble contrast dye Omnipaque 300 contrast and observing an excellent epidurogram with the epidural spread of the dye, after negative aspiration for blood and CSF and in the absence of paresthesias. Again after negative aspiration, a 8 ml mixture containing 80 mg of Kenalog and 4 ml of preservative free Normal Saline, and 2 ml of preservative free lidocaine 1% solution was injected and a washout of epidurogram was seen. Needle was withdrawn intact, skin was cleansed, and bandages were applied. COMPLICATIONS: None COMMENTS: DISPOSITION / PLANS: The patient was placed in a supine position and transferred to the recovery area in a stable condition for observation. There was no evidence of lower extremity motor or sensory deficit after the procedure. Patient was discharged from the recovery room after meeting discharge criteria. Home discharge instructions were given to the patient by the staff. The patient was reexamined prior to discharge. The patient will schedule a repeat procedure in 4-6 weeks.
[2016-06-27] MEDS ORDERED: IV FLUID CONTINUATION 1,000 ML IV ONE (11:34)
[2016-06-27 11:38] VITALS: RESP 16
[2016-06-27 11:55] VITALS: BP 139/71; PULSE 75
--- NOTE | 2016-06-27 13:09 | FL ---
EXAMINATION TYPE: FL guided pain mgmt statistic DATE OF EXAM: 06/27/2016 12:08 PM CLINICAL HISTORY: Low back pain. TECHNIQUE: Fluoroscopy. COMPARISON: None. FINDINGS: Fluoroscopic guidance was provided during pain relief procedure performed by Dr. Osorio . A total of 8 seconds of fluoroscopic time was utilized during the procedure and two spot images are a cquired. Images acquired shows needle localization at level of lumbosacral junction epidural space. IMPRESSION: As Above.
== END 2016-06-27 12:07 | disposition home or self-care (01) ==
LOC: ORPAIN 10:19
PROVIDERS: ATTEND Anesthesiology
DX: G89.29 Other chronic pain (principal); M54.16 Radiculopathy, lumbar region; I10 Essential (primary) hypertension; E11.9 Type 2 diabetes mellitus without complications; Z88.8 Allergy status to other drugs, medicaments and biological substances; Z79.84 Long term (current) use of oral hypoglycemic drugs; Z79.899 Other long term (current) drug therapy
CPT/HCPCS: 62323; J2250; J3301; Q9965; J3010

== ENCOUNTER 2016-08-01 10:08 | Day surgery (SDC) | payer MEDICARE, OTHER ==
[2016-07-30 15:58] VITALS: BMI 27.4
[2016-08-01 11:23] VITALS: TEMP 97.5
[2016-08-01] MEDS ORDERED: LIDOCAINE 1% 20 ML VIAL (10MG/ML) FOR IV START INTRADERMA ONE (11:35)
[2016-08-01 11:44] LABS: Glucose,Whole Blood 113 mg/dL (75-99)
[2016-08-01] MEDS ORDERED: TRIAMCINOLONE ACETONIDE 40 MG/ML 1 ML VIAL ONE (12:03)
[2016-08-01] MEDS ORDERED: ENALAPRILAT 1.25 MG/ML 1 ML VIAL ONE (12:03)
[2016-08-01] MEDS ORDERED: fentaNYL (PF) 50 MCG/ML 2 ML AMP ONE (12:03)
[2016-08-01] MEDS ORDERED: IOHEXOL 180 MG/ML 1 ML ML ONE (12:03)
[2016-08-01] MEDS ORDERED: MIDAZOLAM 2 MG/2 ML VIAL ONE (12:03)
[2016-08-01] MEDS ORDERED: IV FLUID CONTINUATION 650 ML IV ONE (12:36)
--- NOTE | 2016-08-01 12:36 | P.PCN ---
Date of Procedure: 08/01/16 Procedure(s) Performed: PREOPERATIVE DIAGNOSIS: 1- Lumbar Degenerative Disc Diseases POSTOPERATIVE DIAGNOSIS: 1-Lumber Degenerative Disc Diseases PROCEDURE 1. Lumbar epidural steroid injection under fluoroscopic guidance at the L5-S1 level. 2. Lumbar epidurogram. ANESTHESIA: Local with 1% lidocaine 3 ml and IV sedation with Versed 1 mg , and fentanyle 50 Mcg EBL: Minimal PROCEDURE INDICATION: The patient with low back pain and radiculitis symptoms unresponsive to conservative treatment. Fluoroscopy was used to optimize visualization of the needle placement and to maximize safety. PROCEDURE DESCRIPTION / TECHNIQUE: The patient was seen and identified in the preoperative area. Risks, benefits , complications including but not limited to infections ,bleeding ,allergic reaction to the medications ,nerve damage and not complete pain releife , and alternatives were discussed with the patient. The patient agreed to proceed with the procedure and signed the consent. IV was started, and vital signs were stable. Patient was taken to the OR and time out was completed. The patient was placed in the prone position on procedure table and a pillow was placed under the abdomen to reduce lumbar lordosis. The lumbosacral area was prepped and draped in the usual sterile fashion.ere closely monitored during the procedure. Conscious sedation was used during the procedure to decrease patients anxiety. Vital signs was monitered during the entire procedure. Using anterior-posterior fluoroscopy, the L5-S1 interlaminar space was identified and the skin over this site was marked and then infiltrated with 1% lidocaine subcutaneously. Subsequently, a 20-gauge Tuohy epidural needle was inserted and advanced toward the epidural space using the ``Loss of resistance technique and guided by AP and lateral fluoroscopy. The correct needle position in the epidural space was verified with the injection of 2 mL of the water soluble contrast dye Omnipaque 180 contrast and observing an excellent epidurogram with the epidural spread of the dye, after negative aspiration for blood and CSF and in the absence of paresthesias. Again after negative aspiration, a 6 ml mixture containing 40 mg of Kenalog and 2 ml of preservative free Normal Saline, and 2 ml of preservative free lidocaine 1% solution was injected and a washout of epidurogram was seen. Needle was withdrawn intact, skin was cleansed, and bandages were applied. COMPLICATIONS: None DISPOSITION / PLANS: The patient was placed in a supine position and transferred to the recovery area in a stable condition for observation. There was no evidence of lower extremity motor or sensory deficit after the procedure. Patient was discharged from the recovery room after meeting discharge criteria. Home discharge instructions were given to the patient by the staff. The patient was reexamined prior to discharge. The patient will schedule a follow up in the clinic in 2-4 weeks.
--- NOTE | 2016-08-01 12:38 | FL ---
EXAMINATION TYPE: FL guided pain mgmt statistic DATE OF EXAM: 08/01/2016 12:23 PM HISTORY: Pain LESI, 1sec fl time
[2016-08-01 12:54] VITALS: BP 132/66; PULSE 86; RESP 16
== END 2016-08-01 13:05 | disposition home or self-care (01) ==
LOC: ORPAIN 10:08
PROVIDERS: ATTEND Specialist
DX: M51.16 Intervertebral disc disorders with radiculopathy, lumbar region (principal); I10 Essential (primary) hypertension; E11.9 Type 2 diabetes mellitus without complications; Z88.8 Allergy status to other drugs, medicaments and biological substances
CPT/HCPCS: 62323; 99152; J2250; J3301; Q9965; J3010

== ENCOUNTER 2016-09-03 07:29 | Day surgery (SDC) | payer MEDICARE, OTHER ==
[2016-09-02 11:44] VITALS: BMI 27.4
[2016-09-03 08:16] VITALS: RESP 20; TEMP 97.6
[2016-09-03 08:22] LABS: Glucose,Whole Blood 114 mg/dL (75-99)
[2016-09-03] MEDS: LACTATED RINGERS 1,000 ML IV SCH ×2 (08:23→08:33)
[2016-09-03] MEDS ORDERED: LIDOCAINE 1% 20 ML VIAL (10MG/ML) FOR IV START INTRADERMA ONE (08:23)
[2016-09-03] MEDS ORDERED: DEXAMETHASONE SOD PHOSPHATE 10 MG/ML 1 ML VIAL ONE (08:35)
[2016-09-03] MEDS ORDERED: MIDAZOLAM 2 MG/2 ML VIAL ONE (08:35)
[2016-09-03] MEDS ORDERED: fentaNYL (PF) 50 MCG/ML 2 ML AMP ONE (08:35)
[2016-09-03] MEDS ORDERED: IOHEXOL 180 MG/ML 1 ML ML ONE (08:35)
--- NOTE | 2016-09-03 08:49 | P.PCN ---
Date of Procedure: 09/03/16 Preoperative Diagnosis: Postoperative Diagnosis: Procedure(s) Performed: Implants: Surgeon: Ang Osorio Pathology: none sent Condition: stable Disposition: PACU Indications for Procedure: Operative Findings: Description of Procedure: PREOPERATIVE DIAGNOSIS: 1-Lumbar radiculitis. POSTOPERATIVE DIAGNOSIS: 1-Lumbar radiculitis. PROCEDURE 1. Lumbar epidural steroid injection under fluoroscopic guidance at the L5-S1 level. 2. Lumbar epidurogram. ANESTHESIA: Local with 1% lidocaine; IV sedation with Versed/fentanyl. EBL: Minimal PROCEDURE INDICATION: The patient with low back pain and radiculitis symptoms unresponsive to conservative treatment. Fluoroscopy was used to optimize visualization of the needle placement and to maximize safety. No use of blood thinners. Procedure #3 today. PROCEDURE DESCRIPTION / TECHNIQUE: The patient was seen and identified in the preoperative area. Risks, benefits, complications, and alternatives were discussed with the patient, including but not limited to bleeding, infection, nerve damage, allergic reactions to medications, and incomplete pain relief. The patient agreed to proceed with the procedure and signed the consent after all questions were answered. IV was started, and vital signs were stable. Patient was taken to the OR and time out was completed to confirm patient position, procedure, laterality of pain, and allergies. The patient was placed in the prone position on procedure table and a pillow was placed under the abdomen to reduce lumbar lordosis. The lumbosacral area was prepped and draped in the usual sterile fashion. Critical pause was taken. Vital signs were closely monitored during the procedure. Conscious sedation was used during the procedure to decrease patients anxiety. Using anterior-posterior fluoroscopy with a significant caudal tilt, the L5-S1 interlaminar space was identified and the skin over this site was marked and then infiltrated with 1% lidocaine subcutaneously. Subsequently, a 20-gauge 3.5- inch Tuohy epidural needle was inserted and advanced toward the epidural space using the Loss of resistance technique and guided by AP and lateral fluoroscopy. The correct needle position in the epidural space was verified with the injection of 2 mL of the water soluble contrast dye Omnipaque 300 contrast and observing an excellent epidurogram with the epidural spread of the dye, after negative aspiration for blood and CSF and in the absence of paresthesias. Again after negative aspiration, a 8 ml mixture containing 20 mg of Decadron and 4 ml of preservative free Normal Saline, and 2 ml of preservative free lidocaine 1% solution was injected and a washout of epidurogram was seen. Needle was withdrawn intact, skin was cleansed, and bandages were applied. COMPLICATIONS: None COMMENTS: DISPOSITION / PLANS: The patient was placed in a supine position and transferred to the recovery area in a stable condition for observation. There was no evidence of lower extremity motor or sensory deficit after the procedure. Patient was discharged from the recovery room after meeting discharge criteria. Home discharge instructions were given to the patient by the staff. The patient was reexamined prior to discharge and there were no issues. The patient will schedule a follow-up in clinic in approximately 6 weeks.
[2016-09-03] MEDS ORDERED: IV FLUID CONTINUATION 1,000 ML IV ONE (09:06)
[2016-09-03 09:20] VITALS: BP 149/81; PULSE 65
--- NOTE | 2016-09-03 09:33 | FL ---
Fluoroscopy INDICATION: Lumbar epidural FINDINGS: Fluoroscopy time: 6 seconds. Images obtained: 2. IMPRESSIONS: 1. Documentation of fluoroscopy.
== END 2016-09-03 09:46 | disposition home or self-care (01) ==
LOC: ORPAIN 07:29
PROVIDERS: ATTEND Anesthesiology
DX: M54.16 Radiculopathy, lumbar region (principal); Z79.82 Long term (current) use of aspirin
CPT/HCPCS: 62323; J2250; J1100; Q9965; J3010

== ENCOUNTER → 2016-11-04 | Outpatient (CLI) | payer MEDICARE, OTHER ==
[2016-11-04 12:32] VITALS: BP 164/80; PULSE 103; RESP 20; TEMP 94.8
--- NOTE | 2016-11-04 13:07 | P.PN ---
Progress Note - Text Patient returns for followup for chronic back pain with radiation to LLE that worsened acutely when patient was shoveling snow in March. Patient underwent LESI x 3 with one week's relief apiece from each injection and is having severe pain in left hip today; he has seen an orthopedic surgeon and was told that nothing can be done for his left hip other than total hip arthroplasty. Patient denies adverse drug effects from medications. Today, pt denies new-onset weakness, bowel/bladder incontinence, or any other signs or symptoms of cauda equina syndrome. There are no signs of acute intoxication, and no indications of medication diversion or overuse. In addition to above, 13-point review of systems is also negative for chest pain , shortness of breath, changes in vision, changes in hearing, new onset weakness , abdominal pain, diarrhea, extreme fatigue, malaise, fever, skin changes, homicidal or suicidal ideation, or bowel or bladder incontinence. Vital Signs: Reviewed in EMR Gen: WDWN, AAOx3, NAD HEENT: NCAT, EOMI, hearing grossly normal Pulm: resp unlabored Abd: soft, NT, ND Neck: supple, trachea midline ROM in flexion lumbar spine: reduced ROM in extension lumbar spine: reduced Lumbar paravertebral tenderness: + Facet loading: + bilateral SI joint tenderness: neg bilateral Jamil's test: + bilateral Straight leg raise: neg Lower extremity: pain with internal and external rotation left hip Neuro: CN II-XII grossly intact, muscle strength lower extremities PRESERVED Imaging: Reviewed in EMR Assessment: 1. lumbar spondylosis without myelopathy 2. lumbar radiculopathy 3. chronic pain syndrome Plan: 1. Explanation: Opioid and psychological risk scores were reviewed. Diagnoses , prognoses, and multiple treatment options including but not limited to physical therapy, interventional therapies, adjuvant medical therapies, narcotic medication therapies, and surgery were discussed with the patient and all questions were answered to the patient's satisfaction. 2. Opioid agreement: Patient has previously signed narcotic agreement, and was orally counseled to not overuse, abuse, divert, or cell medications, and to take them as prescribed by only 1 healthcare provider. The patient was also counseled to store opioid medications in a safe and preferably locked location. Patient was also counseled against driving or operating heavy equipment while using narcotic medications and also to not use alcohol or any illicit or recreational drugs. The patient verbalized understanding that lack of compliance with any of the above and likely result in failure to renew narcotic prescriptions, possible discharge from the clinic, and possible legal ramifications thereafter if indicated. 3. Counseling: The patient was counseled extensively onBODY MASS INDEX, EXERCISE. Specifically, the patient was instructed regarding the importance of weight control and exercise in the context of both chronic pain and overall health. 4. Procedures: left intra-articular hip injection 5. Consultations: None 6. Investigations: None 7. Medications: none prescribed 8. Disposition: f/u for procedure as scheduled PQRS measures: 1-Patient's medications are documented in the chart. 2-Tobacco use is negative 3-Patient has had a pneumococcal vaccine. 4-Advanced care planning discussed, patient unable to give. 5-Opioid contract signed with the patient. 6-Pain positive, follow-up visit or procedure scheduled 7-Patient's blood pressure measured and documented, and patient will follow up with the primary care due to hypertension. 8-Patient's weight was measured, and body mass index ABOVE the normal limits, and counseling was done. Patient instructed to follow up with PCP. 9-Patient WAS NOT identified as an unhealthy alcohol user.
== END | disposition home or self-care (01) ==
LOC: PNWHC3 12:18
PROVIDERS: ATTEND Anesthesiology
DX: M47.26 Other spondylosis with radiculopathy, lumbar region (principal); G89.4 Chronic pain syndrome
CPT/HCPCS: 99211

== ENCOUNTER 2016-12-02 10:00 | Day surgery (SDC) | payer MEDICARE, OTHER ==
[2016-11-27 14:09] VITALS: BMI 27.4
[2016-12-02 08:29] VITALS: RESP 16; TEMP 97.7
--- NOTE | 2016-12-02 09:08 | P.PCN ---
Date of Procedure: 12/02/16 Preoperative Diagnosis: Left sacroiliitis Postoperative Diagnosis: Same as above Procedure(s) Performed: Left sacroiliac joint steroid injection under fluoroscopic guidance Implants: Anesthesia: other (Moderate IV conscious sedation with fentanyl and Versed) Surgeon: Antonio Kirk Pathology: none sent Condition: stable Disposition: PACU Indications for Procedure: Operative Findings: Description of Procedure: The patient was seen in preoperative holding area consent was obtained then he was brought into the procedure room and placed in prone position. Skin was prepped with ChloraPrep and draped in a sterile manner. Lidocaine 1% was used to numb the skin over the target points that are chosen as follows: The left sacroiliac joint was identified on the AP view of fluoroscopy then the C-arm was tilted to the right oblique position to superimpose the anterior and posterior joint lines on each other point was at the inferior one third of this unified joint line with little cephalad tilting of the C-arm. I Used 22-gauge 3 -1/2 inch Quincke spinal needle for this procedure and after getting into the sacroiliac joint I injected 40 mg of Kenalog was 2 MLS of Marcaine 0.5%. Patient tolerated procedure well.
--- NOTE | 2016-12-02 09:20 | FL ---
EXAMINATION TYPE: FL guided pain mgmt statistic DATE OF EXAM: 12/02/2016 HISTORY: LT SI JOINT INJECTION 8 sec fl
[2016-12-02 09:29] VITALS: BP 170/69; PULSE 74
[~2016-12-02 10:00] MED LIST changes: +IV FLUID CONTINUATION 1,000 ML IV ONE; +LIDOCAINE 1% 20 ML VIAL (10MG/ML) FOR IV START INTRADERMA ONE
[2016-12-02 11:08] LABS: Glucose,Whole Blood 128 mg/dL (75-99)
== END 2016-12-02 10:04 | disposition home or self-care (01) ==
LOC: ORPAIN 10:00
PROVIDERS: ATTEND Anesthesiology
DX: M46.1 Sacroiliitis, not elsewhere classified (principal)
CPT/HCPCS: J2250; J3301; J3010; G0260; 27096; 99152

== ENCOUNTER → 2016-12-25 | Outpatient (CLI) | payer MEDICARE, OTHER ==
[2016-12-25 11:02] LABS: ALT 18 U/L (21-72); AST 20 U/L (17-59); Alkaline Phosphatase 78 U/L (38-126); Anion Gap 12 mmol/L; Blood Urea Nitrogen 21 mg/dL (9-20); Calcium 9.9 mg/dL (8.4-10.2); Carbon Dioxide 26 mmol/L (22-30); Chloride 102 mmol/L (98-107); Cholesterol 116 mg/dL (<200); Glucose 103 mg/dL (74-99); HDL Cholesterol 56 mg/dL (40-60); Non-African American GFR(MDRD) >60 (>60 ml/min/1.73 sqM); Potassium 4.7 mmol/L (3.5-5.1); Sodium 140 mmol/L (137-145); Total Bilirubin 0.7 mg/dL (0.2-1.3); Total Protein 6.9 g/dL (6.3-8.2)
[2016-12-25 16:27] LABS: Urine Creatinine 64.1 mg/dL
== END | disposition home or self-care (01) ==
LOC: LABWHC1 09:09
PROVIDERS: ATTEND Internal Medicine Endocrinology, Diabetes & Metabolism
DX: E78.5 Hyperlipidemia, unspecified (principal); E11.65 Type 2 diabetes mellitus with hyperglycemia
CPT/HCPCS: 36415; 80053; 80061; 82043; 82570; 84443

== ENCOUNTER → 2017-01-27 | Outpatient (CLI) | payer MEDICARE, OTHER ==
[2017-01-27 12:47] VITALS: BP 132/62; PULSE 86; RESP 18; TEMP 98
--- NOTE | 2017-01-27 13:07 | P.PN ---
Progress Note - Text Progress Note Date: 01/27/17 This is an 86-year-old male with history of axial lower back pain. The patient had sacroiliac joint steroid injection under fluoroscopic guidance on the left side last time which gave her 100% of pain relief but lasted only for 3 days. He did have RFA on the lumbar medial branches and also lumbar epidural steroid injections previously. At this time and since he got good relief of his pain although temporarily after the sacroiliac injection I am. going to schedule him to have RFA on the left sacroiliac joint in hope that this will give him longer period of pain relief. The procedure was explained to the patient and his questions were answered.
== END ==
LOC: PNWHC3 12:41
PROVIDERS: ATTEND Anesthesiology
DX: M54.5 Low back pain (principal); Z79.891 Long term (current) use of opiate analgesic
CPT/HCPCS: 99211

== ENCOUNTER → 2017-02-05 | Outpatient (CLI) | payer MEDICARE, OTHER | END | disposition home or self-care (01) | LOC: LABWHC1 12:32 | PROVIDERS: ATTEND Internal Medicine Endocrinology, Diabetes & Metabolism | DX: E11.65 Type 2 diabetes mellitus with hyperglycemia (principal) | CPT/HCPCS: 36415; 82024; 82533 ==

== ENCOUNTER → 2017-03-06 | Outpatient (CLI) | payer MEDICARE, OTHER | END | disposition home or self-care (01) | LOC: LABWHC1 09:23 | PROVIDERS: ATTEND Internal Medicine Endocrinology, Diabetes & Metabolism | DX: E11.65 Type 2 diabetes mellitus with hyperglycemia (principal) | CPT/HCPCS: 36415; 82024; 82533 ==

== ENCOUNTER 2017-05-15 06:36 | Day surgery (SDC) | payer MEDICARE, OTHER ==
[2017-05-09 11:55] VITALS: BMI 24.2
[2017-05-15] MEDS ORDERED: LACTATED RINGERS 1,000 ML IV SCH (07:30)
[2017-05-15] MEDS ORDERED: LIDOCAINE 1% 20 ML VIAL (10MG/ML) FOR IV START INTRADERMA ONE (07:30)
[2017-05-15 07:32] VITALS: RESP 18; TEMP 97.3
[2017-05-15 07:36] LABS: Glucose,Whole Blood 115 mg/dL (75-99)
--- NOTE | 2017-05-15 08:11 | P.PCN ---
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 No use of blood thinners. PROCEDURE DESCRIPTION: The patient was seen and identified in the preoperative area. Risks, benefits, complications, and alternatives were discussed with the patient, with risks including but not limited to bleeding, infection, nerve damage, incomplete pain relief, and allergic reactions to medications. The patient agreed to proceed with the procedure and signed the informed consent after all questions were answered. IV was started. Vital signs were stable throughout the procedure. Patient was taken to the OR and time out was completed.The patient was placed in the prone position on procedure table and a pillow was placed under the abdomen to reduce lumbar lordosis. The lumbosacral area was prepped and draped in the usual sterile fashion. Critical pause was taken. Vital signs were closely monitored during the procedure. L5 Medial Branch: Using left oblique fluoroscopy, the junction of the transverse process and the superior articular process of the top of the sacrum on the right side, which correspond to the fluoroscopic image of the "eye of the Baron dog" was identified. Skin and deeper tissues were localized with 1% lidocaine at the identified level. Then using fluoroscopy, a 10-cm 18-gauge radiofrequency cannula with a 10-mm active tip was was advanced under fluoroscopic guidance until contact was made with periosteum. At this level, the Sensory testing of L5 Medial branch was performed at 50 Hz and 0 to 1 volt with production of concordant pain. Motor stimulation was done at 2 Hz with stimulation of multifidus muscle contraction at (0.1-2.5) volts. No radicular symptoms or paresthesias were produced during the testing. Subsequently, the L5 medial branch was subjected to a radiofrequency ablation at a mode of 90 seconds at 80 degrees Celsius after negative motor and sensory testing as indicated and after injecting 0.5 ml of preservative free Lidocaine 1%. Then after the radiofrequency procedure was done, 1 mL of a solution containing 4 mL of 0.5% preservative-free lidocaine mixed with 40 mg of Kenalog. S1, S2, and S3 Medial branches: Using the oblique position, the left sacroiliac joint was identified. Skin and deeper tissues corresponding to the site were anesthetized with 1% lidocaine. Under fluoroscopic guidance, a total of three 10-cm 18-gauge radiofrequency cannula with 10-mm active tips were advanced to the lateral aspects of the S1, S2, and S3 vertebral foramina. Subsequently, sensory and motor testings were performed at a total of 3 segments at 50 Hz and 2 Hz respectively which produced concordant pain without radiculopathy or paresthesia. Then each segment was subjected to radiofrequency ablation at a mode of 90 seconds at 80 degrees Celsius for a total of 3 lesions with the bipolar technique. Then after the radiofrequency procedure was done, each site was injected with 1 mL of the aforementioned solution containing 4 mL of 1% preservative-free lidocaine mixed with 40 mg of Kenalog. The needles were withdrawn. Area was cleaned. Band-Aid was applied. COMPLICATIONS: None. COMMENTS: DISPOSITION / PLANS: The patient was placed in a supine position and transferred to the recovery area in a stable condition for observation and was discharged from the recovery room after meeting discharge criteria. Home discharge instructions given to the patient by the staff. The patient was reexamined prior to discharge. The patient will schedule a follow up in the clinic in 3-4 weeks.
[2017-05-15] MEDS ORDERED: IV FLUID CONTINUATION 1,000 ML IV ONE (08:18)
--- NOTE | 2017-05-15 08:33 | FL ---
Fluoroscopy INDICATION: Pain FINDINGS: Fluoroscopy time: 9 seconds. Images obtained: 3. IMPRESSIONS: 1. Documentation of fluoroscopy.
[2017-05-15 08:38] VITALS: BP 178/79; PULSE 70
== END 2017-05-15 09:04 | disposition home or self-care (01) ==
LOC: ORPAIN 06:36
PROVIDERS: ATTEND Anesthesiology
DX: M46.1 Sacroiliitis, not elsewhere classified (principal); M47.816 Spondylosis without myelopathy or radiculopathy, lumbar region; I10 Essential (primary) hypertension; E11.9 Type 2 diabetes mellitus without complications; Z79.84 Long term (current) use of oral hypoglycemic drugs; Z79.899 Other long term (current) drug therapy; Z91.09 Other allergy status, other than to drugs and biological substances
CPT/HCPCS: 64640 ×3; 64635; J2250; J3301; J2001; J3010; 99152

== ENCOUNTER → 2017-06-10 | Outpatient (CLI) | payer MEDICARE, OTHER ==
[2017-06-10 12:55] VITALS: BP 151/76; PULSE 99; RESP 17
--- NOTE | 2017-06-10 13:13 | P.PN ---
Subjective Progress Note Date: 06/10/17 This is follow-up visit for this patient with a history of severe and chronic low back pain secondary to lumbar degenerative disc disease, lumbar facet arthropathy, and sacroiliitis ,we have done , radiofrequency ablation of the left-sided sacroiliac joint , he continued to have severe low back pain on the left side , pain increased with any activity , he denies any fever or night sweats , he denies any motor or sensory deficit , he denies any change in bowel movement or urination , pain is constant and increases with any activity Objective - Vital Signs Vital signs: Vital Signs Temp Pulse 99 06/10/17 12:49 Resp 17 06/10/17 12:49 BP 151/76 06/10/17 12:49 Pulse Ox 99 06/10/17 12:49 Intake & Output 06/09/17 06/10/17 06/10/17 18:59 06:59 18:59 Weight 69.853 kg - Exam Physical Examinations : 1-Constitutiona : Cooperative , not in acute distress . 2-HEENT : nech ; supple , no Lymphadenopathy , normal thyroid size . eyes : no ptosis , no icterus, no photophobia . ENT : normal of hearing , normal oropharynx , no Thrush . 3- Respiratory : Chest clear to auscultations Bilaterally , no wheezing , no Rhonchi . 4- Cardiovascular : regular rate and rhythem , S1 , S2 , no S3 , no S4. 5- Gastrointestinal : abdomen soft no tenderness , bowel sounds positive all four quadrents , no organomegally . 6- Genitourinary : Defferred . 7- neurologic : Cranial nerve II to XII intact , no focal neurological deffecit . 8-psychatric : alert , oriented X 3 , appropriate affect , intact judgment and insight . 9-Lymphatic : no Lymphadenopathy . 10- musculoskeltal : , Lumber spine = normal moter stegnth lower extremities ,thigh and legs .5/5 deep tendon reflexes : normal Knee Jerk , normal ankle Jerk . lumber facet Loading Test positive ( left side ) Sever tenderness over the Sacroiliac joint on the Left side Assessment and Plan Plan: Assessment and plan= low back pain secondary to lumbar degenerative disc disease , lumbar spondylosis with lumbar facet arthropathy without myelopathy, and sacroiliitis. The patient reported that he had significant benefit ,in his low back pain after the radiofrequency ablation of the left- sided sacroilc joint, Currently most of the pain is coming from the facetogenic component in the lumbar area, we have done radiofrequency ablation, of the medial branch lumbar area, and he had a good result, patient could benefit from repeat radiofrequency ablation of the medial branch lumbar area, he will be scheduled to have radiofrequency ablation left side medial branches, L3-4 ,L4-5 ,L5-S1 Time with Patient: Less than 30
== END ==
LOC: PNWHC3 11:57
PROVIDERS: ATTEND Specialist
DX: M51.36 Other intervertebral disc degeneration, lumbar region (principal); M47.816 Spondylosis without myelopathy or radiculopathy, lumbar region; M46.86 Other specified inflammatory spondylopathies, lumbar region; M46.1 Sacroiliitis, not elsewhere classified
CPT/HCPCS: 99211

== ENCOUNTER → 2017-07-17 | Day surgery (SDC) | payer MEDICARE, OTHER ==
[2017-07-15 14:30] VITALS: BMI 24.9
[~2017-07-17] MED LIST changes: -IV FLUID CONTINUATION 1,000 ML IV ONE; +LABETALOL 5 MG/ML VIAL MDV ONE; -LIDOCAINE 1% 20 ML VIAL (10MG/ML) FOR IV START INTRADERMA ONE; +LIDOCAINE 1% 20 ML VIAL (10MG/ML) FOR IV START INTRADERMA PRN; +PROPOFOL 10 MG/ML 20 ML VIAL IV ONE
[2017-07-17 08:23] VITALS: TEMP 97.6
[2017-07-17 08:25] LABS: Glucose,Whole Blood 133 mg/dL (75-99)
[2017-07-17 09:26] VITALS: RESP 16
[2017-07-17 09:39] VITALS: BP 164/88; PULSE 61
--- NOTE | 2017-07-17 12:50 | P.PCN ---
Date of Procedure: 07/17/17 Procedure(s) Performed: Procedure: Colonoscopy and biopsy and polypectomy. Preoperative diagnosis: Change in bowel habits. Postoperative diagnosis: 1. S/P prior resection in the right colon with no strictures or obvious inflammation. 2. Distal sigmoid polyp snared but no large polyps or cancer. 3. Biopsies obtained from the small intestine and from the right colon. Preparation: HalfLytely prep. Sedation: Was provided by anesthesia. Brief clinical history: The patient is an 86-year-old male who is referred for this evaluation because of recent change in bowel habits with several days of loose stools and month. No bleeding. His last colonoscopy was many years ago. The patient had prior resection in the right colon. Procedure: With the patient on his left lateral decubitus position and after informed consent and adequate sedation, the perianal area was inspected and it did not show any fissures or fistulas. There were no masses felt on digital rectal examination. The Olympus CFQ 160L video colonoscope was then inserted in the rectum in the usual fashion and advanced to the right colon. There was evidence of prior resection in the right colon with anastomosis with small bowel. The area of the anastomosis appeared healthy with no strictures. I was able to advance the endoscope for a good distance in the small intestine which appeared healthy. The colon appeared healthy as well with no evidence of inflammation. I obtained biopsies from the small intestine and right colon. There was a small polyp in the distal sigmoid which I snared and retrieved by suction but there were no other polyps or tumors or other pathology. I retroflexed the endoscope in the rectum before the endoscope was withdrawn. The patient tolerated the procedure well. Plan: The patient was reassured. Will await pathology results. Further plans can be made based on his course and pathology results. He will follow up with you as planned.
== END | disposition home or self-care (01) ==
LOC: ORWHC2ENDO 07:57
DX: D12.5 Benign neoplasm of sigmoid colon (principal); I10 Essential (primary) hypertension; E78.5 Hyperlipidemia, unspecified; E11.9 Type 2 diabetes mellitus without complications; M19.90 Unspecified osteoarthritis, unspecified site; Z79.84 Long term (current) use of oral hypoglycemic drugs; Z79.899 Other long term (current) drug therapy; Z91.048 Other nonmedicinal substance allergy status; Z90.49 Acquired absence of other specified parts of digestive tract; Z98.0 Intestinal bypass and anastomosis status; Z96.643 Presence of artificial hip joint, bilateral
CPT/HCPCS: 88305; 45385; 45380; J2704

== ENCOUNTER 2017-08-04 07:03 | Day surgery (SDC) | payer MEDICARE, OTHER ==
[2017-07-29 10:12] VITALS: BMI 25.5
[2017-08-04] MEDS ORDERED: LACTATED RINGERS 1,000 ML IV SCH (07:30)
[2017-08-04 08:04] VITALS: BP 220/95; PULSE 81; RESP 16; TEMP 97.6
--- NOTE | 2017-08-04 08:18 | P.PN ---
Progress Note - Text Progress Note Date: 08/04/17 Patient presents for lumbar RFA this AM, but preop blood pressures 220, 224, and 217 systolic today. Patient denies chest pain or headaches. Called and spoke to Dr. Austin's office and they will see him within the next 24 hours for BP management. Will plan to reschedule procedure after BP under better control.
== END 2017-08-04 08:32 | disposition home or self-care (01) ==
LOC: ORPAIN 07:03
PROVIDERS: ATTEND Anesthesiology
DX: M70.70 Other bursitis of hip, unspecified hip (principal); M16.9 Osteoarthritis of hip, unspecified; Z53.8 Procedure and treatment not carried out for other reasons

== ENCOUNTER → 2017-08-05 | Outpatient (CLI) | payer MEDICARE, OTHER ==
--- NOTE | 2017-08-05 10:48 | BD ---
EXAMINATION TYPE: MG DEXA axial skeleton. DATE OF EXAM: 08/05/2017 COMPARISON: NONE CLINICAL HISTORY: left hip pain Height: 5'2 Weight: 144 FRAX RISK QUESTIONS: Alcohol (3 or more units per day): no Family History (Parent hip fracture): no Glucocorticoids (More than 3mos): no (Ex: prednisone, prednisolone, methylprednisolone, dexamethasone, and hydrocortisone). History of Fracture in Adulthood: no Secondary Osteoporosis: 1. Type 1 Diabetes: no 2. Hyperthyroidism: no 3. Menopause before 45: na 4. Malnutrition: no 5. Chronic liver disease: no Rheumatoid Arthritis: no Current Tobacco Use: no RISK FACTORS HISTORY OF: Surgery to /Hip(right/left)/: total hips zoltan When: 10 years ago Active: no Lost more than 2 inches in height since high school: MEDICATIONS: Additional Medications: blood pressure, cholesterol, diabetes, Parkinson Additional History: prostate cancer 20 years ago EXAM MEASUREMENTS: Bone mineral densitometry was performed using the [employer] System. Bone mineral density as measured about the Lumbar spine is: ----- L1-L4(G/cm2): 1.312 T Score Values are as follows: ----- L2: 1.7 ----- L3: 2.1 ----- L4: 0.3 ----- L1-L4:1.1 IMPRESSION: Normal (Values between +1 and -1 indicate normal bone mass). Consider repeating this study in 5 year s or sooner if there is some new clinical indication. NOTE: T-SCORE=SD OF THE YOUNG ADULT MEAN.
--- NOTE | 2017-08-05 15:48 | NM ---
EXAMINATION TYPE: NM bone 3 phase DATE OF EXAM: 08/05/2017 COMPARISON: NONE HISTORY: Left hip pain after fall injury 2-3 weeks ago. 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 History of diabetes. Triple phase bone scintigraphy was performed following the injection of24.1 mCi Tc 99m MDP. Immediat e images and 3.5 hours post injection images acquired. FINDINGS: Arterial and soft tissue phase images show no suspicious increased radiotracer uptake at area of clin ical concern left hip versus opposite right hip. Delayed phase images show no suspicious increased ra diotracer uptake. Normal bladder uptake is seen. Lucency from known prosthesis is present. IMPRESSION: As above. Correlate with radiographs.
== END | disposition home or self-care (01) ==
LOC: RADBDWWP 09:07
PROVIDERS: ATTEND Family Medicine
DX: M25.552 Pain in left hip (principal); Z88.8 Allergy status to other drugs, medicaments and biological substances
CPT/HCPCS: 77080; 78315; A9503

== ENCOUNTER → 2017-08-06 | Outpatient (CLI) | payer MEDICARE, OTHER ==
[2017-08-06 10:09] LABS: ALT 40 U/L (21-72); AST 25 U/L (17-59); Albumin 3.8 g/dL (3.5-5.0); Alkaline Phosphatase 70 U/L (38-126); Blood Urea Nitrogen 21 mg/dL (9-20); Calcium 9.6 mg/dL (8.4-10.2); Carbon Dioxide 25 mmol/L (22-30); Cholesterol 112 mg/dL (<200); Glucose 123 mg/dL (74-99); HDL Cholesterol 50 mg/dL (40-60); LDL Cholesterol,Calculated 45 mg/dL (0-99); Potassium 4.3 mmol/L (3.5-5.1); Sodium 141 mmol/L (137-145); Total Bilirubin 0.6 mg/dL (0.2-1.3); Total Protein 6.3 g/dL (6.3-8.2); Triglycerides 87 mg/dL (<150)
[2017-08-06 10:20] LABS: Anion Gap 12 mmol/L; Chloride 104 mmol/L (98-107)
[2017-08-06 19:30] LABS: Hemoglobin A1C 6.2 % (4.0-6.0)
== END | disposition home or self-care (01) ==
LOC: LABWHC1 09:07
PROVIDERS: ATTEND Internal Medicine Endocrinology, Diabetes & Metabolism
DX: E11.65 Type 2 diabetes mellitus with hyperglycemia (principal)
CPT/HCPCS: 36415; 80053; 80061; 82043; 82570; 83036; 84443

== ENCOUNTER 2018-02-08 18:53 | Emergency (ER) | payer MEDICARE, OTHER ==
--- NOTE | 2018-02-08 19:24 | ED ---
General Adult HPI - General Chief complaint: Abdominal Pain Stated complaint: abdominal pain Source: patient, family Mode of arrival: wheelchair Limitations: no limitations - History of Present Illness Initial comments: Dictation was produced using [employer] dictation software. please excuse any grammatical, word or spelling errors. Chief Complaint: 79-year-old male with past medical history of hypertension, diabetes, dyslipidemia presents with right-sided groin pain. History of Present Illness: Patient is a 79-year-old male presents with right- sided groin pain. Patient states he was at home watching TV when he expense sudden right sharp pain to his right groin. Patient denies any radiation of his symptoms. No nausea or vomiting. Presented to the [facility] where he was briefly evaluated. He was sent here from [facility] for elevated blood pressure and groin pain. Patient has history of elevated blood pressure. He takes multiple medications for his hypertension. Patient takes clonidine patch which he changes every Friday. The ROS documented in this emergency department record has been reviewed and confirmed by me. Those systems with pertinent positive or negative responses have been documented in the HPI. All other systems are other negative and/or noncontributory. - Related Data Home Medications Medication Instructions Recorded Confirmed Ergocalciferol [Vitamin D2 50,000 unit PO Q14D 01/27/14 02/08/18 (DRISDOL)] Multivitamins, Thera [Multivitamin 1 tab PO DAILY 01/27/14 02/08/18 (formulary)] [place]-3 Fatty Acids/Fish Oil [Fish 1 cap PO DAILY 01/27/14 02/08/18 Oil 1,000 mg Softgel] Garlic 1 tab PO DAILY 11/28/15 02/08/18 cloNIDine 0.1 MG/24HR PATCH 1 patch TRANSDERM WE 09/02/16 02/08/18 [Catapres-TTS] sitaGLIPtin [Januvia] 50 mg PO DAILY 11/04/16 02/08/18 Atorvastatin [Lipitor] 40 mg PO DAILY 06/10/17 02/08/18 Carbidopa-Levodopa 25-100 mg 1 tab PO BID 07/15/17 02/08/18 [Sinemet 25-100 mg] Tamsulosin [Flomax] 0.8 mg PO DAILY 07/29/17 02/08/18 Vitamin B Complex 1 cap PO DAILY 02/08/18 02/08/18 hydrOXYzine HCL 10 mg PO HS 02/08/18 02/08/18 metFORMIN HCL ER [Glucophage Xr] 1,000 mg PO PC-SUPPER 02/08/18 02/08/18 Allergies Allergy/AdvReac Type Severity Reaction Status Date / Time iron Allergy Rash/Hives Verified 02/08/18 19:58 if taken in large doses. Review of Systems ROS Statement: Those systems with pertinent positive or pertinent negative responses have been documented in the HPI. ROS Other: All systems not noted in ROS Statement are negative. 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 History of Any Multi-Drug Resistant Organisms: None Reported Past Surgical History: Bowel Resection, Hernia Repair, Joint Replacement Additional Past Surgical History / Comment(s): bilateral hip replacements, zoltan. cataract surgery, nerve procedure on lower back at [facility] pain control Past Anesthesia/Blood Transfusion Reactions: No Reported Reaction Past Psychological History: No Psychological Hx Reported Smoking Status: Former smoker Past Alcohol Use History: Occasional Past Drug Use History: None Reported - Past Family History Mother History Unknown: Yes Family Medical History: No Reported History Father History Unknown: Yes Family Medical History: Myocardial Infarction ([place]) General Exam - General Exam Comments Initial Comments: PHYSICAL EXAM: General Impression: Alert and oriented x3, not in acute distress HEENT: Normocephalic atraumatic, extra-ocular movements intact, pupils equal and reactive to light bilaterally, mucous membranes moist. Cardiovascular: Heart regular rate and rhythm, S1&S2 audible, no murmurs, rubs or gallops Chest: Lungs clear to auscultation bilaterally, no rhonchi, no wheeze, no rales Abdomen: Bowel sounds present, abdomen soft, non-tender, non-distended, no organomegaly, right groin scar : Small left testicle. Nontender intestinal. No scrotal edema or scrotal erythema Musculoskeletal: Pulses present and equal in all extremities, no peripheral edema Motor: Power 5/5 bilaterally, no focal deficits noted Neurological: CN II-XII grossly intact, no focal motor or sensory deficits noted Skin: Intact with no visualized rashes Psych: Normal affect and mood Limitations: no limitations Course Vital Signs 02/08/18 19:13 Temperature 97.5 F L Pulse Rate 89 Respiratory 18 Rate Blood Pressure 214/89 O2 Sat by Pulse 98 Oximetry Medical Decision Making - Medical Decision Making 87-year-old male with past medical history of right groin hernia repair performed in 1983 presents with right groin pain.Patient's HPI was slightly unclear. Laboratory evaluation obtained showing no acute processes. CBC, BMP and urinalysis are unremarkable. Computed tomography scan of the abdomen and pelvis was obtained. There is findings of obstructive calculus the right renal vesicular junction with right-sided hydronephrosis and hydroureter. Given that calculus is measured at 2 mm patient likely will pass this stone spontaneously. Patient advised follow-up with urologist upon discharge. She is pain is controlled. Patient vital signs are stable. - Lab Data Result diagrams: 02/08/18 20:04 02/08/18 20:04 Lab Results 02/08/18 02/08/18 02/08/18 Range/Units 20:04 20:04 21:47 WBC 6.9 (3.8-10.6) k/uL RBC 4.05 L (4.30-5.90) m/uL Hgb 12.8 L (13.0-17.5) gm/dL Hct 38.3 L (39.0-53.0) % MCV 94.7 (80.0-100.0) fL MCH 31.6 (25.0-35.0) pg MCHC 33.3 (31.0-37.0) g/dL RDW 14.1 (11.5-15.5) % Plt Count 186 (150-450) k/uL Neutrophils % 73 % Lymphocytes % 18 % Monocytes % 6 % Eosinophils % 1 % Basophils % 0 % Neutrophils # 5.0 (1.3-7.7) k/uL Lymphocytes # 1.2 (1.0-4.8) k/uL Monocytes # 0.4 (0-1.0) k/uL Eosinophils # 0.0 (0-0.7) k/uL Basophils # 0.0 (0-0.2) k/uL Sodium 138 (137-145) mmol/L Potassium 4.5 (3.5-5.1) mmol/L Chloride 108 H (98-107) mmol/L Carbon Dioxide 23 (22-30) mmol/L Anion Gap 7 mmol/L BUN 26 H (9-20) mg/dL Creatinine 0.90 (0.66-1.25) mg/dL Est GFR (CKD-EPI)AfAm 88 (>60 ml/min/1.73 sqM) Est GFR (CKD-EPI)NonAf 76 (>60 ml/min/1.73 sqM) Glucose 117 H (74-99) mg/dL Calcium 9.6 (8.4-10.2) mg/dL Urine Color Light Yellow Urine Appearance Clear (Clear) Urine pH 6.5 (5.0-8.0) Ur Specific [place] 1.014 (1.001-1.035) Urine Protein Negative (Negative) Urine Glucose (UA) Negative (Negative) Urine Ketones Negative (Negative) Urine Blood Negative (Negative) Urine Nitrite Negative (Negative) Urine Bilirubin Negative (Negative) Urine Urobilinogen <2.0 (<2.0) mg/dL Ur Leukocyte Esterase Negative (Negative) Disposition Clinical Impression: Nephrolithiasis Disposition: HOME SELF-CARE Condition: Good Instructions: Kidney Stones (ED) Is patient prescribed a controlled substance at d/c from ED?: No Referrals: Neptali Austin MD [Primary Care Provider] - 1-2 days Martell Fishman MD [STAFF PHYSICIAN] - 1-2 days Time of Disposition: 22:37
[2018-02-08 20:16] LABS: Basophils % (A) 0 %; Eosinophils % (A) 1 %; HCT 38.3 % (39.0-53.0); HGB 12.8 gm/dL (13.0-17.5); Lymphocytes # (A) 1.2 k/uL (1.0-4.8); Lymphocytes % (A) 18 %; MCH 31.6 pg (25.0-35.0); MCHC 33.3 g/dL (31.0-37.0); MCV 94.7 fL (80.0-100.0); Mean Platelet Volume 6.7; Monocytes # (A) 0.4 k/uL (0-1.0); Monocytes % (A) 6 %; Neutrophils % (A) 73 %; Platelet Count 186 k/uL (150-450); RBC 4.05 m/uL (4.30-5.90); RDW 14.1 % (11.5-15.5); WBC 6.9 k/uL (3.8-10.6)
[2018-02-08 20:27] LABS: Calcium 9.6 mg/dL (8.4-10.2); Potassium 4.5 mmol/L (3.5-5.1)
[2018-02-08] MEDS ORDERED: ACETAMINOPHEN TAB 500 MG TAB PO STA (20:40)
--- NOTE | 2018-02-08 21:15 | CT ---
EXAMINATION TYPE: CT abdomen pelvis w con DATE OF EXAM: 02/08/2018 COMPARISON: None HISTORY: Right lower quadrant abdominal pain. CT DLP: 834.3 mGycm Automated exposure control for dose reduction was used. TECHNIQUE: Helical acquisition of images was performed from the lung bases through the pelvis. CONTRAST: Performed without Oral Contrast and with IV Contrast, patient injected with 100ml mL of Isovue 300. FINDINGS: There is mild subsegmental atelectasis at the lung bases. Heart appears enlarged. There is no pericar dial effusion. There is no pleural effusion. There are small hiatal hernia. The remainder of the stom ach appears normal. Liver shows no focal defect. Spleen appears normal. There is no pancreatic mass. Gallbladder appears normal. There is no adrenal mass. There is right-sided hydronephrosis and hydroureter. There is periureteral edema and perinephric edema. There is 5 mm calculus at the right ureterovesical junction. Bladder dis tends smoothly. There are prosthetic metal implants. There is no pelvic mass. There are are bilateral hip prosthesis noted. There is no inguinal hernia. There is no intestinal wal l thickening. There are no dilated loops. There is no evidence of a bowel obstruction. Appendix is no t seen. There is no sign of appendicitis. Abdominal aorta is atheromatous. There is no mesenteric jamel nopathy or edema. There is multilevel spondylotic changes in the lumbar spine. There is no compressio n fracture. There is 2 mm calculus posterior right kidney. There is 2 mm calculus anterior right kidney. There ar e surgical clips in the transverse colon. There is apparent resection of the right colon. IMPRESSION: OBSTRUCTING CALCULUS AT THE RIGHT URETEROVESICAL JUNCTION WITH RIGHT-SIDED HYDRONEPHROSIS AND HYDROUR ETER.
[2018-02-08 22:21] LABS: Appearance,Urine Clear (Clear); Bilirubin,Urine Negative (Negative); Blood,Urine Negative (Negative); Color,Urine Light Yellow; Glucose,Urine (UA) Negative (Negative); Ketones,Urine Negative (Negative); Leukocyte Esterase,Urine Negative (Negative); Nitrite,Urine Negative (Negative); PH, Urine 6.5 (5.0-8.0); Protein,Urine Negative (Negative); Specific Gravity,Urine 1.014 (1.001-1.035); Urobilinogen,Urine <2.0 mg/dL (<2.0)
[2018-02-08 23:05] VITALS: BP 188/78; PULSE 80; RESP 16; TEMP 97.3
== END 2018-02-08 23:05 | disposition home or self-care (01) ==
LOC: EC 18:53
DX: N13.2 Hydronephrosis with renal and ureteral calculous obstruction (principal); E11.9 Type 2 diabetes mellitus without complications; E78.5 Hyperlipidemia, unspecified; I10 Essential (primary) hypertension; Z85.46 Personal history of malignant neoplasm of prostate; Z98.890 Other specified postprocedural states; Z96.643 Presence of artificial hip joint, bilateral; Z87.891 Personal history of nicotine dependence; Z79.84 Long term (current) use of oral hypoglycemic drugs; Z79.899 Other long term (current) drug therapy; Z91.048 Other nonmedicinal substance allergy status
CPT/HCPCS: 36415; 80048; 85025; 81003; 87086; 74177; 99284; Q9967; 87077; 87186

== ENCOUNTER → 2018-02-18 | Outpatient (CLI) | payer MEDICARE, OTHER ==
--- NOTE | 2018-02-18 13:14 | XR ---
EXAMINATION TYPE: XR KUB DATE OF EXAM: 02/18/2018 HISTORY: Pain Comparison: CT dated 02/08/2018 demonstrating 5 mm calculus right UVJ. Single KUB is submitted for interpretation. Findings: Right renal calculi: None Visualized. Right ureteral calculi: No visible right ureteral or right UVJ calculus. Left renal calculi: None Visualized. Left ureteral calculi: None Visualized. Pelvic calcifications: None Visualized. Bowel gas pattern is unremarkable. No free air. No mass effects. IMPRESSION: 1. No visible right ureteral or right UVJ calculus.
== END | disposition home or self-care (01) ==
LOC: RADXRMAIN 12:29
PROVIDERS: ATTEND Urology
DX: N20.1 Calculus of ureter (principal)
CPT/HCPCS: 74018

== ENCOUNTER → 2018-04-01 | Outpatient (CLI) | payer MEDICARE, OTHER ==
[2018-04-01 12:35] LABS: HCT 35.6 % (39.0-53.0); HGB 11.9 gm/dL (13.0-17.5); MCH 31.5 pg (25.0-35.0); MCHC 33.4 g/dL (31.0-37.0); MCV 94.5 fL (80.0-100.0); Mean Platelet Volume 7.2; Platelet Count 244 k/uL (150-450); RBC 3.76 m/uL (4.30-5.90); RDW 13.7 % (11.5-15.5); WBC 6.5 k/uL (3.8-10.6)
== END | disposition home or self-care (01) ==
LOC: LABWHC1 11:28
PROVIDERS: ATTEND Physician Assistant
DX: L30.9 Dermatitis, unspecified (principal)
CPT/HCPCS: 36415; 82565; 84450; 84460; 84520; 85027

== ENCOUNTER → 2018-05-13 | Outpatient (CLI) | payer MEDICARE, OTHER ==
[2018-05-13 17:03] LABS: Albumin 4.5 g/dL (3.80-4.90); Albumin/Globulin Ratio 2.25 (1.20-2.10); Anion Gap 11.9 mmol/L (4.00-12.00); Calcium 9.5 mg/dL (8.7-10.3); Carbon Dioxide 25.1 mmol/L (21.6-31.8); LDL Cholesterol,Calculated 53.2 mg/dL (0.0-131.0); Potassium 4.3 mmol/L (3.5-5.5); Total Bilirubin 0.6 mg/dL (0.2-1.2); Total Protein 6.5 g/dL (6.2-8.2); VLDL Calculation 10.8 mg/dL (5.00-40.00)
[2018-05-13 17:32] LABS: Hemoglobin A1C 5.8 % (4.0-6.0)
== END | disposition home or self-care (01) ==
LOC: LABWHC1 09:29
PROVIDERS: ATTEND Internal Medicine Endocrinology, Diabetes & Metabolism
DX: E11.9 Type 2 diabetes mellitus without complications (principal); R41.3 Other amnesia
CPT/HCPCS: 36415; 80053; 80061; 82043; 82570; 82607; 83036; 84439; 84443

== ENCOUNTER → 2018-07-31 | Outpatient (CLI) | payer MEDICARE, OTHER ==
--- NOTE | 2018-07-31 13:57 | US ---
EXAMINATION TYPE: US venous doppler duplex LE BI DATE OF EXAM: 07/31/2018 1:46 PM COMPARISON: NONE CLINICAL HISTORY: R22.42 R22.41 Swelling bilateral limbs. Bilateral leg swelling. No pain. No hx of blood clots. Not on blood thinners. SIDE PERFORMED: Bilateral TECHNIQUE: The lower extremity deep venous system is examined utilizing real time linear array sonog ivonne with graded compression, doppler sonography and color-flow sonography. VESSELS IMAGED: External Iliac Vein (EIV) Common Femoral Vein Deep Femoral Vein Greater Saphenous Vein * Femoral Vein Popliteal Vein Small Saphenous Vein * Proximal Calf Veins (* superficial vessels) Right Leg: Negative for DVT Left Leg: Negative for DVT IMPRESSION: No evidence for DVT at this time.
== END | disposition home or self-care (01) ==
LOC: RADUSWWP 13:20
PROVIDERS: ATTEND Family Medicine
DX: R22.42 Localized swelling, mass and lump, left lower limb (principal); Z91.048 Other nonmedicinal substance allergy status
CPT/HCPCS: 93970

== ENCOUNTER → 2019-01-19 | Outpatient (CLI) | payer MEDICARE, OTHER ==
[2019-01-19 18:03] LABS: Albumin 4.1 g/dL (3.80-4.90); Albumin/Globulin Ratio 2.93 (1.60-3.17); Calcium 9.2 mg/dL (8.7-10.3); Chol/HDL Ratio 2.41; Globulin 1.4 g/dL (1.6-3.3); LDL Cholesterol,Calculated 47.6 mg/dL (0.0-131.0); Potassium 3.9 mmol/L (3.5-5.5); Total Bilirubin 0.7 mg/dL (0.2-1.2); Total Protein 5.5 g/dL (6.2-8.2); VLDL Calculation 21.4 mg/dL (5.00-40.00)
== END | disposition home or self-care (01) ==
LOC: LABWHC1 08:38
PROVIDERS: ATTEND Internal Medicine Endocrinology, Diabetes & Metabolism
DX: E11.65 Type 2 diabetes mellitus with hyperglycemia (principal)
CPT/HCPCS: 36415; 80053; 80061; 82043; 82570; 83036; 84443

== ENCOUNTER 2019-09-24 09:31 | Observation (INO) | payer MEDICARE, OTHER ==
[2019-09-24] MEDS ORDERED: Acetaminophen-Codeine 300-30mg TAB PO STA (10:16)
--- NOTE | 2019-09-24 10:34 | ED ---
General Adult HPI - General Chief complaint: Fall Stated complaint: Fall Time Seen by Provider: 09/24/19 09:54 Source: patient, RN notes reviewed, old records reviewed Mode of arrival: ambulatory Limitations: no limitations - History of Present Illness Initial comments: 88-year-old male patient has no history of hip replacement no blood thinners presents to ED for chief complaint of fall which occurred last night. Patient is walking when he tripped over his feet falling on his left side. Denies any trauma to head or neck. Patient's chief complaint is left hip pain left flank pain. Denies any trauma to head or neck. Denies any other complaints. Systemic: Pt denies fatigue, fever/chills, rash. Pt denies weakness, night sweats, weight loss. Neuro: Pt denies headache, visual disturbances, syncope or pre-syncope. HEENT: Pt denies ocular discharge or irritation, otalgia, rhinorrhea, pharyngitis or notable lymphadenopathy. Cardiopulmonary: Pt denies chest pain, SOB, heart palpitations, dyspnea on exertion. Abdominal/GI: Pt denies abdominal pain, n/v/d. : Pt denies dysuria, burning w/ urination, frequency/urgency. Denies new onset urinary or bowel incontinence. MSK: Pt denies loss of strength or function in extremities. Neuro: Pt denies new onset weakness, paresthesias. - Related Data Home Medications Medication Instructions Recorded Confirmed Ergocalciferol [Vitamin D2 50,000 unit PO Q14D 01/27/14 09/24/19 (DRISDOL)] Multivitamins, Thera [Multivitamin 1 tab PO DAILY 01/27/14 09/24/19 (formulary)] [place]-3 Fatty Acids/Fish Oil [Fish 1 cap PO DAILY 01/27/14 09/24/19 Oil 1,000 mg Softgel] Garlic 1 tab PO DAILY 11/28/15 09/24/19 sitaGLIPtin [Januvia] 50 mg PO DAILY 11/04/16 09/24/19 Atorvastatin [Lipitor] 40 mg PO DAILY 06/10/17 09/24/19 Carbidopa-Levodopa 25-100 mg 1 tab PO BID 07/15/17 09/24/19 [Sinemet 25-100 mg] metFORMIN HCL ER [Glucophage Xr] 1,000 mg PO PC-SUPPER 02/08/18 09/24/19 Amoxicillin 500 mg PO DAILY 09/24/19 09/24/19 Diphenox-Atrop 2.5-0.025 mg 1 tab PO HS PRN 09/24/19 09/24/19 [Lomotil] Furosemide [Lasix] 40 mg PO DAILY 09/24/19 09/24/19 Lisinopril [Zestril] 2.5 mg PO DAILY 09/24/19 09/24/19 Loperamide HCl [Imodium A-D] 2 mg PO Q6H PRN 09/24/19 09/24/19 glipiZIDE [Glucotrol] 5 mg PO BID 09/24/19 09/24/19 sitaGLIPtin PHOSPHATE [Januvia] 50 mg PO DAILY 09/24/19 09/24/19 Allergies Allergy/AdvReac Type Severity Reaction Status Date / Time iron Allergy Rash/Hives Verified 09/24/19 12:13 if taken in large doses. Review of Systems ROS Statement: Those systems with pertinent positive or pertinent negative responses have been documented in the HPI. ROS Other: All systems not noted in ROS Statement are negative. Past Medical History Past Medical History: Cancer, Diabetes Mellitus, Hyperlipidemia, Hypertension, Osteoarthritis (OA) Additional Past Medical History / Comment(s): loose stools,prostate ca with radiation-2008?, osteoarthritis in lower back. Parkinson History of Any Multi-Drug Resistant Organisms: None Reported Past Surgical History: Bowel Resection, Hernia Repair, Joint Replacement Additional Past Surgical History / Comment(s): bilateral hip replacements, zoltan. cataract surgery, nerve procedure on lower back at [facility] pain control Past Anesthesia/Blood Transfusion Reactions: No Reported Reaction Past Psychological History: No Psychological Hx Reported Smoking Status: Former smoker Past Alcohol Use History: Occasional Past Drug Use History: None Reported - Past Family History Mother History Unknown: Yes Family Medical History: No Reported History Father History Unknown: Yes Family Medical History: Myocardial Infarction ([place]) General Exam - General Exam Comments Initial Comments: Constitutional: NAD, AOX3, Pt has pleasant affect. HEENT: NC/AT, trachea midline, neck supple, no lymphadenopathy. Posterior pharynx non erythematous, without exudates. External ears appear normal, without discharge. Mucous membranes moist. Eyes PERRLA, EOM intact. There is no scleral icterus. No pallor noted. Cardiopulmonary: RRR, no murmurs, rubs or gallops, no JVD noted. Lungs CTAB in anterior and posterior akhtar. No peripheral edema. Abdominal exam: Abdomen soft and non-distended. Abdomen soft and nontender to palpation. Left flank is tender to palpation. Mild tenderness to left hip. Bowel sounds active in LLQ. No hepatosplenomegaly. No ecchymosis. Neuro: CN II-XII grossly intact. No nuchal rigidity. No raccon eyes, no franco sign, no hemotympanum. No cervical spinal tenderness. MSK: No posterior calf tenderness bilaterally, homans sign negative bilaterally. Posterior tibialis and radial pulse +2 bilaterally. Sensation intact in upper and lower extremities. Full active ROM in upper and lower extremities, 5/5 stregnth. Lumbar spine is mildly tender. Range of motion and sensation is intact. 5/5 strength. Limitations: no limitations Course Vital Signs 09/24/19 09/24/19 09/24/19 09:41 10:06 11:32 Temperature 97.5 F L Pulse Rate 41 L 78 72 Respiratory 18 18 18 Rate Blood Pressure 143/59 165/73 O2 Sat by Pulse 98 97 98 Oximetry Medical Decision Making - Medical Decision Making 88-year-old male patient has no history of hip replacement no blood thinners presents to ED for chief complaint of fall which occurred last night. Patient is walking when he tripped over his feet falling on his left side. Denies any trauma to head or neck. Patient's chief complaint is left hip pain left flank pain. Denies any trauma to head or neck. Denies any other complaints. Patient welcome and are stable, afebrile. Physical exam displayed tenderness to left flank region. Sensation intact in upper and lower extremities. Full active ROM in upper and lower extremities, 5/5 stregnth. Lumbar spine is mildly tender. Range of motion and sensation is intact. 5/5 strength. Patient's vital signs are stable, afebrile. Plain films initially displayed rib fracture. CT was obtained after this displayed mild compression fracture of T12. Patient does have tenderness over this region.Nondisplaced subtle left 11th posterior lateral rib fracture. EKG nonspecific. Patient's strength in lower extremities is intact as well as sensation. Denies any red flag symptoms. Patient will be admitted for pain control and orthopedic consultation. Case discussed with Dr. Dang. - Lab Data Result diagrams: 09/24/19 11:50 09/24/19 11:50 Lab Results 09/24/19 09/24/19 09/24/19 Range/Units 11:50 11:50 11:50 WBC 7.8 (3.8-10.6) k/uL RBC 3.88 L (4.30-5.90) m/uL Hgb 12.7 L (13.0-17.5) gm/dL Hct 37.9 L (39.0-53.0) % MCV 97.5 (80.0-100.0) fL MCH 32.7 (25.0-35.0) pg MCHC 33.5 (31.0-37.0) g/dL RDW 13.1 (11.5-15.5) % Plt Count 195 (150-450) k/uL Neutrophils % 78 % Lymphocytes % 14 % Monocytes % 5 % Eosinophils % 1 % Basophils % 0 % Neutrophils # 6.1 (1.3-7.7) k/uL Lymphocytes # 1.1 (1.0-4.8) k/uL Monocytes # 0.4 (0-1.0) k/uL Eosinophils # 0.1 (0-0.7) k/uL Basophils # 0.0 (0-0.2) k/uL PT 10.1 (9.0-12.0) sec INR 1.0 (<1.2) APTT 24.2 (22.0-30.0) sec Sodium 140 (137-145) mmol/L Potassium 4.1 (3.5-5.1) mmol/L Chloride 103 (98-107) mmol/L Carbon Dioxide 26 (22-30) mmol/L Anion Gap 11 mmol/L BUN 24 H (9-20) mg/dL Creatinine 0.84 (0.66-1.25) mg/dL Est GFR (CKD-EPI)AfAm 90 (>60 ml/min/1.73 sqM) Est GFR (CKD-EPI)NonAf 78 (>60 ml/min/1.73 sqM) Glucose 188 H (74-99) mg/dL Calcium 9.3 (8.4-10.2) mg/dL Total Bilirubin 0.8 (0.2-1.3) mg/dL AST 28 (17-59) U/L ALT 11 (4-49) U/L Alkaline Phosphatase 65 (38-126) U/L Total Protein 6.7 (6.3-8.2) g/dL Albumin 4.0 (3.5-5.0) g/dL - EKG Data -: EKG Interpreted by Me (and Dr. Dang ) EKG Comments: Ventricular rate 79, MS interval 220, QRS 86, QT/QTC 46 is 465. A sinus rhythm with first-degree AV block. Otherwise normal EKG. Disposition Clinical Impression: Fall, Rib fracture, Thoracic compression fracture Disposition: ADMITTED IP TO THIS HOSP Condition: Serious Is patient prescribed a controlled substance at d/c from ED?: No Referrals: Neptali Austin MD [Primary Care Provider] - 1-2 days
--- NOTE | 2019-09-24 11:12 | XR ---
EXAM TYPE: LUMBAR SPINE X RAY SERIES COMPARISON: NONE HISTORY: Pain TECHNIQUE: 4 views are submitted. FINDINGS: There is a curvature the spine with hypertrophic and degenerative change at multiple levels. At the a pproximate level of L1 there is a age-indeterminate mild wedge deformity. Vascular calcifications are seen and there is severe multilevel degenerative disc disease, facet arthropathy and suspected johny inal encroachment. Large hypertrophic spurs are noted. IMPRESSION: 1. Severe multilevel degenerative disc disease with mild wedging at the expected level of L1 or T12 o f indeterminate age. Correlate clinically.
--- NOTE | 2019-09-24 11:13 | XR ---
EXAMINATION TYPE: XR Hip LT and AP Pelvis DATE OF EXAM: 09/24/2019 COMPARISON: NONE HISTORY: Pain TECHNIQUE: A single AP view of the pelvis is obtained. Two views of the left hip are obtained. FINDINGS: Postsurgical changes are seen and there is degenerative change of the lower lumbar spine. V ascular calcifications are noted. Metallic densities overlying the pubic rami likely are on the basis of a prostate procedure. No definite acute fracture or dislocation. Diffuse osteopenia noted. IMPRESSION: 1. Postoperative changes.
--- NOTE | 2019-09-24 11:15 | XR ---
EXAMINATION TYPE: XR ribs LT w pa chest xray DATE OF EXAM: 09/24/2019 COMPARISON: NONE HISTORY: Pain TECHNIQUE: Frontal view of the chest and 4 views of the left ribs are submitted FINDINGS: There is arthropathy of the left shoulder. Atherosclerotic change aorta. There are deformit ies involving the 10th and 11th rib laterally. Remaining osseous structures are intact. There is limi sergio assessment of the 12th rib. Hypertrophic and degenerative change of the spine. IMPRESSION: 1. Mildly displaced fractures involving the lateral margin of the left 10th and 11th ribs.
[2019-09-24 12:05] LABS: Basophils % (A) 0 %; Eosinophils # (A) 0.1 k/uL (0-0.7); Eosinophils % (A) 1 %; HCT 37.9 % (39.0-53.0); HGB 12.7 gm/dL (13.0-17.5); Lymphocytes # (A) 1.1 k/uL (1.0-4.8); Lymphocytes % (A) 14 %; MCH 32.7 pg (25.0-35.0); MCHC 33.5 g/dL (31.0-37.0); MCV 97.5 fL (80.0-100.0); Mean Platelet Volume 8.3; Monocytes # (A) 0.4 k/uL (0-1.0); Monocytes % (A) 5 %; Neutrophils # (A) 6.1 k/uL (1.3-7.7); Neutrophils % (A) 78 %; Platelet Count 195 k/uL (150-450); RBC 3.88 m/uL (4.30-5.90); RDW 13.1 % (11.5-15.5); WBC 7.8 k/uL (3.8-10.6)
[2019-09-24 12:14] LABS: Partial Thromboplastin Time 24.2 sec (22.0-30.0); Prothrombin Time 10.1 sec (9.0-12.0)
[2019-09-24 12:18] LABS: Calcium 9.3 mg/dL (8.4-10.2); Potassium 4.1 mmol/L (3.5-5.1); Total Bilirubin 0.8 mg/dL (0.2-1.3); Total Protein 6.7 g/dL (6.3-8.2)
[2019-09-24] MEDS ORDERED: LIDOCAINE 5% PATCH TOPICAL STA (12:50)
--- NOTE | 2019-09-24 13:32 | CT ---
EXAMINATION TYPE: CT ChestAbdPelvis w con DATE OF EXAM: 09/24/2019 COMPARISON: 02/07/2018 HISTORY: Lt sided rib fx, fall CT DLP: 1154.4 mGycm. Automated Exposure Control for Dose Reduction was Utilized. CONTRAST: CT scan of the thorax, abdomen and pelvis is performed with IV Contrast, patient injected with 100 mL of Isovue 300. FINDINGS: LUNGS: Multifocal pleural parenchymal scarring and multifocal subsegmental atelectasis. Main tracheob ronchial tree is patent. Subpleural deposition of fat with no sizable pleural effusion. MEDIASTINUM: There are no greater than 1 cm hilar or mediastinal lymph nodes. Heart is enlarged. No s izable pericardial effusion. Moderate coronary artery calcifications. OTHER: Minimal retroareolar gynecomastia. LIVER/GB: Minimal intrahepatic biliary ductal dilatation. Punctate to small to accurately characteriz e right hepatic lesions on image 54 and image 60. PANCREAS: Pancreatic parenchymal atrophy. SPLEEN: No significant abnormality is seen. ADRENALS: No significant abnormality is seen. KIDNEYS: Too small to accurately characterize cortical renal lesion seen. No hydronephrosis of either kidney. BOWEL: Redundancy of the sigmoid colon. Moderate degree colonic fecal stasis limiting evaluation of t he bowel. Bowel is further limited by lack of oral contrast. Right hemicolectomy seen. No dilated lar ge or small bowel. LYMPH NODES: No greater than 1cm abdominal or pelvic lymph nodes are appreciated. OSSEOUS STRUCTURES: There is a nondisplaced fracture of the posterior lateral margin of the left 11th rib. The previously seen 10th rib fracture on the chest x-ray of the same date is not demonstrated o n CT. There is severe degenerative change of the spine with straightening of the lumbar lordosis and osseous fusion of the L2-L5 vertebral bodies. Bridging anterior osteophytes suggest diffuse idiopathi c hyperostosis versus less likely ankylosing spondylitis. There is a mild compression deformity of T1 2 not seen on the prior of 02/08/2018. Bilateral hip arthroplasties seen creating spray artifact and partially obscuring direction running visualization of the pelvic structures. Diffuse osseous deminer alization limiting evaluation of fracture. OTHER: Prostate brachytherapy seeds seen. Urinary bladder diverticula and trabeculated appearance of the urinary bladder that can be seen in chronic urinary bladder outlet obstruction. Extensive atheros clerosis of the abdominal aorta and its branches. IMPRESSION: 1. Mild compression deformity of T12 not seen on the prior of 02/08/2018. This could be acute given the recent fall. Correlate with point tenderness. MRI could evaluate for bone marrow edema and furthe r evaluate the spinal cord. Findings are superimposed on advanced degenerative change of the spine. 2. Nondisplaced subtle left 11th posterior lateral rib fracture. 3. Minimal intrahepatic biliary ductal dilatation. Correlate with bilirubin levels and alkaline phosp hatase as well as liver function tests to determine the need for MRCP.
[2019-09-24] MEDS ORDERED: MORPHINE SULFATE 4 MG/ML SYRINGE IV PRN (14:40)
[2019-09-24] MEDS ORDERED: NALOXONE 0.4 MG/ML 1 ML VIAL IV PRN (14:40)
[2019-09-24] MEDS ORDERED: SODIUM CHLORIDE 0.9% 500 ML 500 ML IV ONE (15:42)
--- NOTE | 2019-09-24 16:20 | P.CNOR ---
History of Present Illness - [facility] Consult date: 09/24/19 Requesting physician: Adam Novoa Consult reason: fracture (T12 compression fracture deformity and left-sided rib fractures at 10th and 11th ribs), back pain History of present illness: Patient is a pleasant 88-year-old male who is seen and examined at the bedside in the emergency department room #18. Patient states he tripped over his feet last night sustaining a fall landing on his left side. He did not seek further treatment at that time. States this morning his pain is not having any significant improvement. He is experiencing significant pain at the thoraco lumbar junction and over the left inferior ribs. Upon presentation to the emergency department multiple imaging modalities were taken which showed evidence of a T12 acute compression fracture deformity and left lateral rib fractures at the 10th and 11th ribs. Patient does have a history of bilateral total hip arthroplasty. He states this morning he has experienced some pain in the right groin. Occasionally the pain will radiate from his right groin down the right lower extremity. It dissipates quickly. He has some difficulty with hip flexion and knee flexion due to his right sort a groin pain. X-ray imaging did not show any changes at his bilateral hips and appears to have his hardware at the bilateral hips intact and in good position. Patient denies any specific radiculopathy pattern of the bilateral lower extremities. He did not lose consciousness at the time of the fall. He denies any other injuries. Patient states he has never broken any bones in his life previously. He is a retired . Patient's past medical history includes diabetes mellitus, hyperlipidemia, hypertension, and prostate cancer with radiation. He also has history of previous bowel resection. 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 Parkinson History of Any Multi-Drug Resistant Organisms: None Reported Past Surgical History: Bowel Resection, Hernia Repair, Joint Replacement Additional Past Surgical History / Comment(s): bilateral hip replacements, zoltan. cataract surgery, nerve procedure on lower back at [facility] for pain control Past Anesthesia/Blood Transfusion Reactions: No Reported Reaction Past Psychological History: No Psychological Hx Reported Smoking Status: Former smoker Past Alcohol Use History: Occasional Past Drug Use History: None Reported - Past Family History Mother History Unknown: Yes Family Medical History: No Reported History Father History Unknown: Yes Family Medical History: Myocardial Infarction ([place]) Medications and Allergies Home Medications Medication Instructions Recorded Confirmed Type Ergocalciferol [Vitamin D2 50,000 unit PO Q14D 01/27/14 09/24/19 History (DRISDOL)] Multivitamins, Thera [Multivitamin 1 tab PO DAILY 01/27/14 09/24/19 History (formulary)] [place]-3 Fatty Acids/Fish Oil [Fish 1 cap PO DAILY 01/27/14 09/24/19 History Oil 1,000 mg Softgel] Garlic 1 tab PO DAILY 11/28/15 09/24/19 History sitaGLIPtin [Januvia] 50 mg PO DAILY 11/04/16 09/24/19 History Atorvastatin [Lipitor] 40 mg PO DAILY 06/10/17 09/24/19 History Carbidopa-Levodopa 25-100 mg 1 tab PO BID 07/15/17 09/24/19 History [Sinemet 25-100 mg] metFORMIN HCL ER [Glucophage Xr] 1,000 mg PO PC-SUPPER 02/08/18 09/24/19 History Amoxicillin 500 mg PO DAILY 09/24/19 09/24/19 History Diphenox-Atrop 2.5-0.025 mg 1 tab PO HS PRN 09/24/19 09/24/19 History [Lomotil] Furosemide [Lasix] 40 mg PO DAILY 09/24/19 09/24/19 History Lisinopril [Zestril] 2.5 mg PO DAILY 09/24/19 09/24/19 History Loperamide HCl [Imodium A-D] 2 mg PO Q6H PRN 09/24/19 09/24/19 History glipiZIDE [Glucotrol] 5 mg PO BID 09/24/19 09/24/19 History sitaGLIPtin PHOSPHATE [Januvia] 50 mg PO DAILY 09/24/19 09/24/19 History Allergies Allergy/AdvReac Type Severity Reaction Status Date / Time iron Allergy Rash/Hives Verified 09/24/19 12:13 if taken in large doses. Physical Examination Physical exam: Patient is awake, alert, and oriented 3 Vital signs stable Good chest excursion with deep inspiration and expiration Examination of thoracic and lumbar spine reveals skin is intact with no abrasions, lacerations, or bruises; no erythema, purulence or signs of infection Significant pain with palpation along the midline of the lower thoracic spine near the thoracolumbar junction No significant pain with palpation of the middle lower lumbar spine Pain with palpation over the left lateral lower ribs Evidence of pain patch over the left lateral lower rib area Dorsiflexion, plantarflexion, and extensor hallucis longus positive sustained bilaterally Lower extremity strength 5/5 on the left Patient has some difficulty performing hip flexion and knee flexion on the right due to exacerbation of right-sided groin pain Examination of the right groin shows no evidence of erythema, bruising, swelling, obvious injury, or signs of infection No significant pain with palpation over the right groin No lower extremity hyperreflexia bilaterally Straight leg test negative bilateral lower extremities Negative Lasegue's test bilaterally No signs or symptoms of DVT; no calf pain No pain with internal and external rotation of the hips bilaterally Neurovascularly intact Results Pertinent studies: CT of the chest/abdomen/pelvis taken on 09/24/2019: Evidence of left lateral 10th and 11th rib fractures; loss of lumbar lordosis; severe degenerative disc disease of the spine; L2-5 osseous fusion with bridging anterior osteophytic spurring; likely diffuse idiopathic skeletal hypertrophy; T12 mild compression fracture deformity not visually seen on previous imaging from 02/08/2018; evidence of bilateral total hip arthroplasty; diffuse osseous demineralization X-rays of the lumbar spine taken on 09/24/2019: T12 mild wedge compression fracture deformity; severe near-complete degenerative disc disease L2-L5; L5-S1 severe degenerative disc disease; significant anterior osteophytic spurring throughout the lumbar spine; loss of lumbar lordosis; facet spondylosis; degenerative scoliosis; L1-2 left large lateral osteophytic spurring; T12-L1 right osteophytic spurring X-rays of the left hip and pelvis taken on 09/24/2019: Evidence of bilateral total hip arthroplasty which hardware appears to be in good position; no evidence of pelvic fracture; no evidence of hip dislocation; significant degenerative disease in the lower lumbar spine; clips within the pelvis most likely from previous prostate cancer treatment Chest x-ray and rib x-rays taken on 09/24/2019: Evidence of left lateral 10th and 11th rib fractures; evidence of bilateral osteophytic spurring throughout the visualized thoracic spine; arthrosclerosis of the aorta - Labs Labs: Abnormal Lab Results - Last 24 Hours (Table) 09/24/19 09/24/19 Range/Units 11:50 11:50 RBC 3.88 L (4.30-5.90) m/uL Hgb 12.7 L (13.0-17.5) gm/dL Hct 37.9 L (39.0-53.0) % BUN 24 H (9-20) mg/dL Glucose 188 H (74-99) mg/dL H & H 09/24/19 Range/Units 11:50 Hgb 12.7 L (13.0-17.5) gm/dL Hct 37.9 L (39.0-53.0) % Coagulation 09/24/19 Range/Units 11:50 INR 1.0 (<1.2) Result Diagrams: 09/24/19 11:50 09/24/19 11:50 Assessment and Plan Assessment: Assessment: Acute T12 wedge compression fracture deformity Acute thoracic back pain Acute left lateral rib fractures at the 10th and 11th ribs Left-sided rib pain Status post fall Right-sided groin pain Significant lumbar degenerative disc disease Lumbar spondylosis History of previous bilateral total hip arthroplasty Diffuse osseous demineralization Significant thoracic and lumbar osteophytic spurring Loss of lumbar lordosis Diffuse idiopathic skeletal hyperostosis Diabetes mellitus Hyperlipidemia Hypertension History of prostate cancer with radiation History of bowel resection (1) T12 compression fracture Current Visit: Yes Status: Acute Code(s): S22.080A - WEDGE COMPRESSION FR ACTURE OF T11-T12 VERTEBRA, INIT SNOMED Code(s): 086486986 (2) Status post fall Current Visit: Yes Status: Acute Code(s): Z91.81 - HISTORY OF FALLING SNOMED Code(s): 011619787 (3) Acute thoracic back pain Current Visit: Yes Status: Acute Code(s): M54.6 - PAIN IN THORACIC SPINE SNOMED Code(s): 951776013 (4) Left rib fracture Current Visit: Yes Status: Acute Code(s): S22.32XA - FRACTURE OF ONE RIB, LEFT SIDE, INIT FOR CLOS FX SNOMED Code(s): 92851199 (5) Rib pain on left side Current Visit: Yes Status: Acute Code(s): R07.81 - PLEURODYNIA SNOMED Code(s): 347617751 (6) Right groin pain Current Visit: Yes Status: Acute Code(s): R10.31 - RIGHT LOWER QUADRANT PAIN SNOMED Code(s): 36283711644260182 (7) Lumbar degenerative disc disease Current Visit: Yes Status: Acute Code(s): M51.36 - OTHER INTERVERTEBRAL DISC DEGENERATION, LUMBAR REGION SNOMED Code(s): 02150244 (8) Lumbar spondylosis Current Visit: Yes Status: Acute Code(s): M47.816 - SPONDYLOSIS W/O MYELOPATHY OR RADICULOPATHY, LUMBAR REGION SNOMED Code(s): 389281494 (9) Osteophyte determined by x-ray Current Visit: Yes Status: Acute Code(s): M25.70 - OSTEOPHYTE, UNSPECIFIED JOINT SNOMED Code(s): 108754323033015 (10) History of bilateral total hip arthroplasty Current Visit: Yes Status: Acute Code(s): Z96.643 - PRESENCE OF ARTIFICIAL HIP JOINT, BILATERAL SNOMED Code(s): 568386553350 (11) Diffuse idiopathic skeletal hyperostosis Current Visit: Yes Status: Acute Code(s): M48.10 - ANKYLOSING HYPEROSTOSIS [FORESTIER], SITE UNSPECIFIED SNOMED Code(s): 48110356 (12) Diabetes mellitus Current Visit: Yes Status: Acute Code(s): E11.9 - TYPE 2 DIABETES MELLITUS WITHOUT COMPLICATIONS SNOMED Code(s): 16502593 (13) Hypertension Current Visit: Yes Status: Acute Code(s): I10 - ESSENTIAL (PRIMARY) HYPERTENSION SNOMED Code(s): 89719176 (14) Hyperlipidemia Current Visit: Yes Status: Acute Code(s): E78.5 - HYPERLIPIDEMIA, UNSPECIF IED SNOMED Code(s): 52953868 (15) History of prostate cancer Current Visit: Yes Status: Acute Code(s): Z85.46 - PERSONAL HISTORY OF MALIGNANT NEOPLASM OF PROSTATE SNOMED Code(s): 263112836 (16) History of bowel resection Current Visit: Yes Status: Acute Code(s): Z90.49 - ACQUIRED ABSENCE OF OTHER SPECIFIED PARTS OF DIGESTIVE TRACT SNOMED Code(s): 945527265 Plan: Plan: 1. After reviewing of imaging, physical examination the patient, and further discussion with the patient, we will currently planned to continue with conservative treatment at this time. Patient does have evidence of acute T12 compression fracture deformity not visualized on previous imaging. He status post fall. He is experiencing acute pain at the fracture site of T12. He also has pain at the acute fracture sites of the left lateral lower ribs at the 10th and 11th ribs. At this time we'll plan for bracing. A prescription has been written and provided to case management for a Spinomed TLSO brace. Once this brace is delivered and fitted appropriately, patient should wear this brace while sitting upright at greater than 45, during increase activities, during ambulation. Brace does not have to or while lying in bed or while bathing. Following fitting of this brace, patient will be is clear for discharge from an orthopedic spine standpoint. Following discharge, patient may follow-up with Moo Chinchilla PA-C or Dr. Gabino Bennett at [facility] in 2-3 weeks for further evaluation. The patient feels this is a good plan of care. We will continue to follow him closely while he is in the hospital. 2. In regards to his right-sided groin pain, his pain may be in relation to a pulled groin. He does not have any exacerbation of pain at the right hip with internal and external rotation of the right hip. He does have some difficulty with right hip flexion and knee flexion due to exacerbating his right-sided groin pain. He occasionally has pain that will radiate from the groin down the right leg. It is intermittent. It does not have a radicular pattern. We discussed we will continue to watch his right-sided groin pain but will not currently plan to obtain further imaging. If his pain is not improving with time, we discussed we could plan to obtain further imaging regards to his lumbar spine and/or right hip. He is known to have previously undergone bilateral total hip arthroplasty and the hardware at his bilateral hips remains in good alignment and good position. 3. In relation to his left-sided rib fractures at the left 10th and 11th ribs, we will also continue conservative treatment. Will not plan for specific treatment for those rib fractures. We discussed his rib fractures are painful but should heal over time and his pain should improve. He may get some relief of his left-sided rib pain fractures while wearing the TLSO brace being prescribed for his T12 compression fracture deformity. 4. Continue medicines for pain control as prescribed as needed for control of symptoms including [place] 5 mg/325 mg and morphine 5. Patient will continue to be seen and examined by Dr. Flores in trauma. Time with Patient: Greater than 30 (Including obtaining history, physical examination, reviewing of imaging, and dictation.)
[2019-09-24] MEDS: HYDROcodone/APAP 5-325MG 1 EACH TAB PO PRN (16:41)
[2019-09-24] MEDS ORDERED: LOPERAMIDE 2 MG CAP PO PRN (16:54)
[2019-09-24 17:02] LABS: Glucose,Whole Blood 105 mg/dL (75-99)
[2019-09-24] MEDS ORDERED: metFORMIN 500 MG TAB PO SCH (18:30)
[2019-09-24 20:32] LABS: Glucose,Whole Blood 156 mg/dL (75-99)
[2019-09-24] MEDS: glipiZIDE 5 MG TAB PO SCH (22:10)
[2019-09-24] MEDS: CARBIDOPA-LEVODOPA 25-100 MG 1 EACH TAB PO SCH (22:10)
[2019-09-24] MEDS: LISINOPRIL 20 MG TAB PO SCH (23:38)
[2019-09-25] MEDS: HYDROcodone/APAP 5-325MG 1 EACH TAB PO PRN (03:22)
[2019-09-25 07:21] VITALS: BP 176/78; PULSE 77; RESP 18; TEMP 97.8
[2019-09-25 07:24] LABS: Glucose,Whole Blood 137 mg/dL (75-99)
--- NOTE | 2019-09-25 08:11 | P.PN ---
Progress Note - Text Progress Note Date: 09/25/19 The patient is seen and examined today at bedside. He feels his pain is much improved today. He is not having any changes in his lower extremity. He is not having changes in bowel bladder function. He feels his back is more comfortable but has some pain in his flank. He is sitting up eating breakfast and comfortable. Vital signs he is afebrile stable vital signs. He is breathing comfortably and regularly. He is not short of breath. His lower extremity cephalexin passive range of motion. He is able stand up well without any assistance. He is minimal tenderness to palpation at the midline and he has some tenderness over his flank. There is no bruising or ecchymosis. There is no crepitus. His lower extremities have sustained dorsal flexion plantar flexion and EHL with 5 out of 5 strength. There is no pain in his hips with motion. Imaging as reviewed as is the new computed tomography scan as compared with his old 2018 Assessment and plan Status post mechanical fall at home New 11th rib fracture minimally displaced without any compromise New T12 compression deformity with fracture due to his fall without any neurologic compromise Chronic lumbar changes with prior fusion L2 5 Chronic lumbar spondylosis and ankylosis patient's pain improving well without anyNeurologic issues The patient seems to have a compression deformity at T12 due to his fall. He also has a new 11th rib fracture due to fall. His symptoms are much improved and he is not having any neurologic compromise. However with his ankylosis I think that he needs bracing for appropriate treatment to provide stability around the site at his spine. I do not anticipate any surgical intervention for him at this point. Once he has his brace until be okay for him to be discharged from an orthopedic spine standpoint for follow-up with our office. I think we should see him in approximately2 weeks' time for recheck evaluation and repeat imaging. The T11 fracture should heal with expectant management. The patient is eager to try to go home today and I think that will be okay once he has his brace intact. I discussed this with him and discussed his injury with him and various risks and he seems to understand. I answered his questions best my ability.
[2019-09-25] MEDS ORDERED: LINAGLIPTIN 5 MG TABLET PO SCH (09:00)
[2019-09-25] MEDS ORDERED: ATORVASTATIN 40 MG TAB PO SCH (09:00)
[2019-09-25] MEDS ORDERED: AMOXICILLIN 500 MG CAP PO SCH (09:00)
[2019-09-25] MEDS ORDERED: FUROSEMIDE 40 MG TAB PO SCH (09:00)
[2019-09-25] MEDS ORDERED: LISINOPRIL 2.5 MG TAB PO SCH (09:00)
[2019-09-25] MEDS: glipiZIDE 5 MG TAB PO SCH (09:23)
[2019-09-25] MEDS: CARBIDOPA-LEVODOPA 25-100 MG 1 EACH TAB PO SCH (09:24)
[2019-09-25] MEDS: LISINOPRIL 20 MG TAB PO SCH (09:24)
--- NOTE | 2019-09-25 10:27 | P.GSHP ---
History of Present Illness H&P Date: 09/25/19 88-year-old male presented to the emergency department after a fall. He states that he fell on the evening prior to his arrival. He states that there was a small rug in the bathroom that he tripped over and fell on his left side. He states that he did not lose any consciousness during this fall. He did initially have pain on the left side and presented to the ER due to continued pain. Multiple imaging modalities were performed in the emergency department. The patient was found to have a T12 compression fracture along with a left inferior rib fracture, nondisplaced. He also is complaining of some groin pain that he states is resolving. He denies any trauma to his head. He denies any chest pain. He denies any abdominal pain. He states that he normally uses a walker for ambulation and does have a history of bilateral total hip arthroplasty. He does have a significant past medical history with diabetes mellitus, hyperlipidemia, hypertension, prostate cancer. He also has undergone a abdominal surgery with bowel resection. He denies any fevers, chills, chest pain or shortness of breath. - Review of Systems All systems: negative Past Medical History Past Medical History: Cancer, Diabetes Mellitus, Hyperlipidemia, Hypertension, Osteoarthritis (OA) Additional Past Medical History / Comment(s): loose stools,prostate ca with radiation-2007?, osteoarthritis in lower back. Parkinson History of Any Multi-Drug Resistant Organisms: None Reported Past Surgical History: Bowel Resection, Hernia Repair, Joint Replacement Additional Past Surgical History / Comment(s): bilateral hip replacements, zoltan. cataract surgery, nerve procedure on lower back at [facility] for pain cont rol Past Anesthesia/Blood Transfusion Reactions: No Reported Reaction Past Psychological History: No Psychological Hx Reported Smoking Status: Former smoker Past Alcohol Use History: Occasional Additional Past Alcohol Use History / Comment(s): drinks one beer a night per pt Past Drug Use History: None Reported - Past Family History Mother History Unknown: Yes Family Medical History: No Reported History Father History Unknown: Yes Family Medical History: Myocardial Infarction ([place]) Medications and Allergies Home Medications Medication Instructions Recorded Confirmed Type Ergocalciferol [Vitamin D2 50,000 unit PO Q14D 01/27/14 09/24/19 History (DRISDOL)] Multivitamins, Thera [Multivitamin 1 tab PO DAILY 01/27/14 09/24/19 History (formulary)] [place]-3 Fatty Acids/Fish Oil [Fish 1 cap PO DAILY 01/27/14 09/24/19 History Oil 1,000 mg Softgel] Garlic 1 tab PO DAILY 11/28/15 09/24/19 History sitaGLIPtin [Januvia] 50 mg PO DAILY 11/04/16 09/24/19 History Atorvastatin [Lipitor] 40 mg PO DAILY 06/10/17 09/24/19 History Carbidopa-Levodopa 25-100 mg 1 tab PO BID 07/15/17 09/24/19 History [Sinemet 25-100 mg] metFORMIN HCL ER [Glucophage Xr] 1,000 mg PO PC-SUPPER 02/08/18 09/24/19 History Amoxicillin 500 mg PO DAILY 09/24/19 09/24/19 History Diphenox-Atrop 2.5-0.025 mg 1 tab PO HS PRN 09/24/19 09/24/19 History [Lomotil] Furosemide [Lasix] 40 mg PO DAILY 09/24/19 09/24/19 History Lisinopril [Zestril] 2.5 mg PO DAILY 09/24/19 09/24/19 History Loperamide HCl [Imodium A-D] 2 mg PO Q6H PRN 09/24/19 09/24/19 History glipiZIDE [Glucotrol] 5 mg PO BID 09/24/19 09/24/19 History sitaGLIPtin PHOSPHATE [Januvia] 50 mg PO DAILY 09/24/19 09/24/19 History Allergies Allergy/AdvReac Type Severity Reaction Status Date / Time iron Allergy Rash/Hives Verified 09/24/19 12:13 if taken in large doses. Surgical - Exam Osteopathic Statement: *. No significant issues noted on an osteopathic structural exam other than those noted in the History and Physical/Consult. Vital Signs Temp Pulse Resp BP Pulse Ox 97.5 F L 41 L 18 143/59 98 09/24/19 09:41 09/24/19 09:41 09/24/19 09:41 09/24/19 09:41 09/24/19 09:41 - General well developed, well nourished - Eyes PERRL - ENT normal mucosa, decreased hearing - Neck trachea midline - Respiratory normal respiratory effort - Abdomen Soft, nontender, nondistended, no rebound, guarding - Integumentary No obvious ecchymosis or lacerations - Neurologic normal coordination, normal sensation - Psychiatric oriented to time, oriented to person, oriented to place Pain to palpation on mid back Results - Labs 09/24/19 11:50 09/24/19 11:50 Abnormal Lab Results - Last 24 Hours (Table) 09/24/19 09/24/19 09/24/19 Range/Units 11:50 11:50 17:00 RBC 3.88 L (4.30-5.90) m/uL Hgb 12.7 L (13.0-17.5) gm/dL Hct 37.9 L (39.0-53.0) % BUN 24 H (9-20) mg/dL Glucose 188 H (74-99) mg/dL POC Glucose (mg/dL) 105 H (75-99) mg/dL 09/24/19 09/25/19 Range/Units 20:13 07:11 RBC (4.30-5.90) m/uL Hgb (13.0-17.5) gm/dL Hct (39.0-53.0) % BUN (9-20) mg/dL Glucose (74-99) mg/dL POC Glucose (mg/dL) 156 H 137 H (75-99) mg/dL Diabetes panel 09/24/19 Range/Units 11:50 Sodium 140 (137-145) mmol/L Potassium 4.1 (3.5-5.1) mmol/L Chloride 103 (98-107) mmol/L Carbon Dioxide 26 (22-30) mmol/L BUN 24 H (9-20) mg/dL Creatinine 0.84 (0.66-1.25) mg/dL Glucose 188 H (74-99) mg/dL Calcium 9.3 (8.4-10.2) mg/dL AST 28 (17-59) U/L ALT 11 (4-49) U/L Alkaline Phosphatase 65 (38-126) U/L Total Protein 6.7 (6.3-8.2) g/dL Albumin 4.0 (3.5-5.0) g/dL Calcium panel 09/24/19 Range/Units 11:50 Calcium 9.3 (8.4-10.2) mg/dL Albumin 4.0 (3.5-5.0) g/dL Pituitary panel 09/24/19 Range/Units 11:50 Sodium 140 (137-145) mmol/L Potassium 4.1 (3.5-5.1) mmol/L Chloride 103 (98-107) mmol/L Carbon Dioxide 26 (22-30) mmol/L BUN 24 H (9-20) mg/dL Creatinine 0.84 (0.66-1.25) mg/dL Glucose 188 H (74-99) mg/dL Calcium 9.3 (8.4-10.2) mg/dL Adrenal panel 09/24/19 Range/Units 11:50 Sodium 140 (137-145) mmol/L Potassium 4.1 (3.5-5.1) mmol/L Chloride 103 (98-107) mmol/L Carbon Dioxide 26 (22-30) mmol/L BUN 24 H (9-20) mg/dL Creatinine 0.84 (0.66-1.25) mg/dL Glucose 188 H (74-99) mg/dL Calcium 9.3 (8.4-10.2) mg/dL Total Bilirubin 0.8 (0.2-1.3) mg/dL AST 28 (17-59) U/L ALT 11 (4-49) U/L Alkaline Phosphatase 65 (38-126) U/L Total Protein 6.7 (6.3-8.2) g/dL Albumin 4.0 (3.5-5.0) g/dL Assessment and Plan (1) Acute thoracic back pain Current Visit: Yes Status: Acute Code(s): M54.6 - PAIN IN THORACIC SPINE SNOMED Code(s): 139591221 (2) Rib fracture Current Visit: Yes Status: Acute Code(s): S22.39XA - FRACTURE OF ONE RIB, UNSP SIDE, INIT FOR CLOS FX SNOMED Code(s): 70870654 Plan: 88-year-old male status post fall with acute T12 compression fracture and left- sided rib fracture. - Orthopedic consultation was placed. He was evaluated by orthopedics and the plan is for nonsurgical and conservative approach with a back brace. Neck brace is being ordered currently. He is to follow up with orthopedic surgery in the next 2-3 weeks for continued evaluation. - Rib fracture appears nondisplaced. We will continue with Lidoderm patch and analgesia. Patient will require this as an outpatient as well. He currently does not appear to have any pulmonary contusion or pulmonary issues. Respiration appears to be normal. - Multiple medical conditions are being evaluated by his primary care physician. Home medications have been restarted.
--- NOTE | 2019-09-25 10:36 | P.DS ---
Providers Date of admission: 09/24/19 14:19 Attending physician: Siobhan Flores DO Consults: 09/24/19 14:40 Consult Physician Stat Consulting Provider: Sarah Bennett Consult Reason/Comments: rib fracture, t12 compression fx Do you want consulting provider notified?: Yes Consult Physician Stat Consulting Provider: Neptali Austin Consult Reason/Comments: fall, rib fx, compression fx Do you want consulting provider notified?: Yes Primary care physician: Neptali Austin - Discharge Diagnosis(es) (1) Acute thoracic back pain Current Visit: Yes Status: Acute (2) Rib fracture Current Visit: Yes Status: Acute Hospital Course: 88-year-old male presented to the emergency department with complaints of back pain and left-sided pain after a fall. On workup, he was found to have nondisplaced lower left rib fractures along with T12 compression fracture. He was evaluated by orthopedic surgery and nonsurgical approach was decided upon with back brace. Analgesia was used secondary to rib fracture and nonoperative approach will be used. Patient is requesting discharge and states he is feeling much better. He is at this point surgically stable for discharge. He is to follow up with his primary care physician. Patient Condition at Discharge: Fair Plan - Discharge Summary Discharge Rx Participant: No New Discharge Prescriptions: New Lidocaine 5% Patch [Lidoderm] 1 patch TOPICAL DAILY #14 patch HYDROcodone/APAP 5-325MG [[place] 5-325] 1 each PO Q6HR PRN #12 tab PRN Reason: Moderate Pain Methocarbamol [Robaxin] 500 mg PO TID #15 tab Continue Ergocalciferol [Vitamin D2 (DRISDOL)] 50,000 unit PO Q14D Multivitamins, Thera [Multivitamin (formulary)] 1 tab PO DAILY [place]-3 Fatty Acids/Fish Oil [Fish Oil 1,000 mg Softgel] 1 cap PO DAILY Garlic 1 tab PO DAILY sitaGLIPtin [Januvia] 50 mg PO DAILY Atorvastatin [Lipitor] 40 mg PO DAILY Carbidopa-Levodopa 25-100 mg [Sinemet 25-100 mg] 1 tab PO BID metFORMIN HCL ER [Glucophage Xr] 1,000 mg PO PC-SUPPER Amoxicillin 500 mg PO DAILY Diphenox-Atrop 2.5-0.025 mg [Lomotil] 1 tab PO HS PRN PRN Reason: Diarrhea Furosemide [Lasix] 40 mg PO DAILY glipiZIDE [Glucotrol] 5 mg PO BID Lisinopril [Zestril] 2.5 mg PO DAILY Loperamide HCl [Imodium A-D] 2 mg PO Q6H PRN PRN Reason: Diarrhea sitaGLIPtin PHOSPHATE [Januvia] 50 mg PO DAILY Discharge Medication List Ergocalciferol [Vitamin D2 (DRISDOL)] 50,000 unit PO Q14D 01/27/14 [History] Multivitamins, Thera [Multivitamin (formulary)] 1 tab PO DAILY 01/27/14 [History] [place]-3 Fatty Acids/Fish Oil [Fish Oil 1,000 mg Softgel] 1 cap PO DAILY 01/27/14 [History] Garlic 1 tab PO DAILY 11/28/15 [History] sitaGLIPtin [Januvia] 50 mg PO DAILY 11/04/16 [History] Atorvastatin [Lipitor] 40 mg PO DAILY 06/10/17 [History] Carbidopa-Levodopa 25-100 mg [Sinemet 25-100 mg] 1 tab PO BID 07/15/17 [History] metFORMIN HCL ER [Glucophage Xr] 1,000 mg PO PC-SUPPER 02/08/18 [History] Amoxicillin 500 mg PO DAILY 09/24/19 [History] Diphenox-Atrop 2.5-0.025 mg [Lomotil] 1 tab PO HS PRN 09/24/19 [History] Furosemide [Lasix] 40 mg PO DAILY 09/24/19 [History] Lisinopril [Zestril] 2.5 mg PO DAILY 09/24/19 [History] Loperamide HCl [Imodium A-D] 2 mg PO Q6H PRN 09/24/19 [History] glipiZIDE [Glucotrol] 5 mg PO BID 09/24/19 [History] sitaGLIPtin PHOSPHATE [Januvia] 50 mg PO DAILY 09/24/19 [History] HYDROcodone/APAP 5-325MG [[place] 5-325] 1 each PO Q6HR PRN #12 tab 09/25/19 [Rx] Lidocaine 5% Patch [Lidoderm] 1 patch TOPICAL DAILY #14 patch 09/25/19 [Rx] Methocarbamol [Robaxin] 500 mg PO TID #15 tab 09/25/19 [Rx] Follow up Appointment(s)/Referral(s): Neptali Austin MD [Primary Care Provider] - 1-2 days Moo Chinchilla PAC [PHYSICIAN [employer]] - 2 Weeks (Patient may follow-up with Moo Chinchilla PA-C or Dr. Gabino Bennett at [facility] in 2-3 weeks following discharge. ) Activity/Diet/Wound Care/Special Instructions: 1. Patient may wear Spinomed TLSO brace for comfort and support while sitting upright at greater than 45, while working with therapy, and while ambulating; patient does not have to wear the brace while lying in bed or bathing 2. Patient should avoid excessive bending, twisting, and lifting; no lifting greater than 10 pounds. 3. Take medications as prescribed Discharge Disposition: HOME SELF-CARE
[2019-09-25] MEDS ORDERED: hydrALAZINE HCL 50 MG TAB PO SCH (11:45)
[2019-09-25 12:34] LABS: Glucose,Whole Blood 135 mg/dL (75-99)
--- NOTE | 2019-09-25 17:23 | PN ---
PROGRESS NOTE DATE OF SERVICE: 09/25/2019 CHIEF COMPLAINT: Fall with compression fracture of T12 and rib fracture. HISTORY OF PRESENT ILLNESS: This gentleman is doing well. He feels fine. He is not having any headaches, chest pain, shortness of breath, abdominal pain, etc. His blood pressure has been up since he has been in and this is being addressed. PHYSICAL EXAMINATION: Chest is clear. Breath sounds are heard bilaterally. His cardiac exam is normal. Abdomen is soft, nontender. IMPRESSION: 1. Compression fracture of T12. 2. Fractured ribs. 3. Type 2 noninsulin dependent diabetes mellitus. 4. Elevated blood pressure. PLAN: I will address blood pressure introducing Apresoline. He will he is cleared to go home from my perspective and I will follow him up in the office. MMODL / IJN: [id number] /
--- NOTE | 2019-09-25 19:59 | CONS ---
CONSULTATION CHIEF COMPLAINT: Fall with fracture of the rib and compression fracture T12. 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 He also has a history of a type 2 NIDDM and history of carcinoma of the prostate. He apparently was in his bathroom when he tripped over a throw rug. He fell against the bathtub. He came to emergency room where he had at least 1 rib fracture and a compression fracture at T12. He has had no problems with vomiting, neurologic sequelae, urinating, controlling his sphincter, etc. He did not hit his head. REVIEW OF SYSTEMS: He has had no neurologic problems, chest pain, shortness of breath, abdominal pain, vomiting, incontinence of stool or urine, dysuria, etc. Review of systems otherwise unremarkable. Past medical history, family history, personal and social histories reveal that he CANNOT TAKE IRON. MEDICATIONS: He is on Vicodin 5 p.r.n., vitamin D 50,000 units a month, Lomotil p.r.n., metformin 500 mg once a day, furosemide 40 mg once a day, atorvastatin 40 mg at night, Januvia 50 mg once a day, lisinopril 2.5 once a day, tamsulosin 0.4 mg once a day, Imodium 1 or 2 q.i.d. p.r.n., carbidopa levodopa 25-100 twice a day. He has had no recurrence of the prostate cancer since the treatment in 2004. He had a colon carcinoma in 2009 without sequelae. He does not smoke and does not drink. PHYSICAL EXAMINATION: Blood pressure is 175/100 with a pulse of 91, respirations of 30, he is afebrile. In general, he appeared to be well developed, well nourished and well preserved for his age. Skin color is normal. Skin is warm, dry. Lymph nodes not enlarged. Head, ears, eyes, nose, mouth, and throat were normal. Neck veins are not distended. Thyroid is not enlarged. Chest is clear. Cardiac exam is normal. The abdomen is protuberant, soft. Extremities: Normal. Neurologically, he is intact. He is tender throughout the chest on both sides. IMPRESSION: 1. Fall with compression fracture of T12 and rib fracture. 2. Hypertension. RECOMMENDATIONS: No specific recommendation for his management. His blood pressure is elevated and this will be addressed. MMODL / IJN: [id number] /
== END 2019-09-25 16:44 | disposition home or self-care (01) ==
LOC: EC 09:31 → 5NMEDONC 14:19
PROVIDERS: ADMIT Surgery; ATTEND Surgery
DX: S22.42XA Multiple fractures of ribs, left side, initial encounter for closed fracture (principal); S22.080A Wedge compression fracture of T11-T12 vertebra, initial encounter for closed fracture; R10.31 Right lower quadrant pain; I44.0 Atrioventricular block, first degree; E11.9 Type 2 diabetes mellitus without complications; E78.5 Hyperlipidemia, unspecified; I10 Essential (primary) hypertension; M47.897 Other spondylosis, lumbosacral region; G20 Parkinson's disease; M51.37 Other intervertebral disc degeneration, lumbosacral region; M47.896 Other spondylosis, lumbar region; M48.10 Ankylosing hyperostosis [Forestier], site unspecified; M25.70 Osteophyte, unspecified joint; M25.78 Osteophyte, vertebrae; M40.56 Lordosis, unspecified, lumbar region; M81.0 Age-related osteoporosis without current pathological fracture; Z03.818 Encounter for observation for suspected exposure to other biological agents ruled out; Z79.891 Long term (current) use of opiate analgesic; Z79.84 Long term (current) use of oral hypoglycemic drugs; Z79.899 Other long term (current) drug therapy; Z91.09 Other allergy status, other than to drugs and biological substances; Z85.46 Personal history of malignant neoplasm of prostate; Z92.3 Personal history of irradiation; Z87.19 Personal history of other diseases of the digestive system; Z90.49 Acquired absence of other specified parts of digestive tract; Z98.890 Other specified postprocedural states; Z96.643 Presence of artificial hip joint, bilateral; Z98.41 Cataract extraction status, right eye; Z98.42 Cataract extraction status, left eye; Z87.891 Personal history of nicotine dependence; Z85.038 Personal history of other malignant neoplasm of large intestine; Z98.1 Arthrodesis status; Z82.49 Family history of ischemic heart disease and other diseases of the circulatory system; W18.09XA Striking against other object with subsequent fall, initial encounter; Y92.012 Bathroom of single-family (private) house as the place of occurrence of the external cause
CPT/HCPCS: 96360; 99285; 36415; 93005; 80053; 85025; 85610; 85730; 71101; 72100; 73502; 71260; 74177; G0378 ×2; U0003; Q9967